=== PATIENT | female | born 1945 | race Caucasian/White ===

== ENCOUNTER 2016-08-25 08:14 | Outpatient (CLI) | payer MEDICARE ==
[2016-08-25 10:25] LABS: ALT (SGPT) 22 U/L (0-55); AST (SGOT) 17 U/L (5-34); Alkaline Phosphatase 109 U/L (40-150); Anion Gap 17 mmol/L (10-20); BUN (Urea Nitrogen) 15 mg/dL (9.8-20.1); Bilirubin, Total 0.5 mg/dL (0.2-1.2); Calc. Creatinine Clearance 0 mL/min (70-130); Calcium 9.7 mg/dL (7.8-10.44); Cardiac Risk 3.7 (Less than 4.5); Cholesterol 147 mg/dL (< 200 Desired); Estimated GFR-MDRD 83; Globulin 2.8 g/dL (2.4-3.5); Glucose 98 mg/dL (80-115); HDL Cholesterol 40 mg/dL (>60 Neg Risk); LDL Cholesterol, Calculated 83 mg/dL; Protein, Total 6.8 g/dL (5.8-8.1); Triglycerides 120 mg/dL (Less than 150)
[2016-08-25 10:31] LABS: Carbon Dioxide 41 mmol/L (23-31); Chloride 88 mmol/L (98-107); Potassium 4.4 mmol/L (3.5-5.1); Sodium 142 mmol/L (136-145)
== END 2016-08-25 08:15 | disposition home or self-care (01) ==
LOC: MADLAB 08:14 → MERGE 08:14 → MADLAB 08:15
PROVIDERS: ATTEND Internal Medicine Cardiovascular Disease
DX: E78.00 Pure hypercholesterolemia, unspecified (principal); E03.9 Hypothyroidism, unspecified
CPT/HCPCS: 36415; 80053; 80061; 84443

== ENCOUNTER 2017-01-29 08:15 | Outpatient (CLI) | payer MEDICARE ==
[2017-01-29 08:56] LABS: #Basophils 0.1 thou/uL (0.0-0.2); #Eosinphils 0.2 thou/uL (0.0-0.7); #Lymphocytes 1.8 thou/uL (1.20-3.40); #Monocytes 0.8 thou/uL (0.11-0.59); #Neutrophils 6.7 thou/uL (1.40-6.50); %Basophils 1.5 % (0.0-1.0); %Eosinophils 1.8 % (0.0-10.0); %Lymphocytes 18.6 % (21.0-51.0); %Monocytes 8.3 % (0.0-10.0); %Neutrophils 69.8 % (42.0-75.0); Hemoglobin 11.9 g/dL (12.0-16.0); Mean Corpuscular HGB CONC 31.3 g/dL (32.0-36.0); Mean Corpuscular Hemoglobin 29.4 pg (27.0-31.0); Mean Platelet Volume 6.9 fL (7.4-10.4); Platelet Count 223 thou/uL (130-400); RBC Distribution Width 13.8 % (11.5-14.5); Red Blood Cell (RBC) Count 4.05 mill/uL (4.20-5.40); White Blood Cell (WBC) Count 9.6 thou/uL (4.8-10.8)
[2017-01-29 09:26] LABS: Digoxin 1.73 ng/mL (0.8-2.0)
[2017-01-29 09:31] LABS: ALT (SGPT) 20 U/L (8-55); AST (SGOT) 15 U/L (5-34); Albumin 3.9 g/dL (3.4-4.8); Alkaline Phosphatase 109 U/L (40-150); Anion Gap 18 mmol/L (10-20); BUN (Urea Nitrogen) 14 mg/dL (9.8-20.1); Bilirubin, Direct 0.3 mg/dL (0.1-0.3); Bilirubin, Total 0.6 mg/dL (0.2-1.2); Calc. Creatinine Clearance 0 mL/min (70-130); Calcium 9.8 mg/dL (7.8-10.44); Cardiac Risk 3.1 (Less than 4.5); Cholesterol 156 mg/dl (< 200 Desired); Estimated GFR-MDRD 78; Glucose 105 mg/dL (80-115); HDL Cholesterol 50 mg/dL (>60 Neg Risk); LDL Cholesterol, Calculated 86 mg/dL; Protein, Total 6.9 g/dL (6.0-8.3); Triglycerides 98 mg/dL (Less than 150)
[2017-01-29 09:39] LABS: Chloride 86 mmol/L (98-107); Potassium 4.5 mmol/L (3.5-5.1); Sodium 142 mmol/L (136-145)
[2017-01-29 11:07] LABS: Carbon Dioxide 44 mmol/L (23-31)
== END 2017-01-29 08:16 | disposition home or self-care (01) ==
LOC: MADLABBHPM 08:15
PROVIDERS: ATTEND Family Medicine
DX: I42.9 Cardiomyopathy, unspecified (principal); I10 Essential (primary) hypertension
CPT/HCPCS: 36415; 80048; 80061; 80076; 80162; 85025

== ENCOUNTER 2017-04-11 09:40 | Emergency (ER) | payer MEDICARE ==
[2017-04-11] MEDS ORDERED: Triple Antibiotic Oint 1 GM Packet ONE (10:20)
[2017-04-11] MEDS ORDERED: Naproxen 500 MG TAB ONE (10:20)
--- NOTE | 2017-04-11 11:05 | RAD ---
LEFT HAND 3 VIEWS: Date: 04/11/17 PROVIDED CLINICAL HISTORY: Left hand pain. FINDINGS: There is a transversely oriented fracture of the distal radial metaphyseal region with associated ap ex volar angulation at the fracture site. There is no definite evidence for fracture involving the l eft hand. Correlation with dedicated left wrist radiographs recommended. IMPRESSION: Displaced distal radial fracture. Recommend dedicated left wrist radiographs. POS: [facility]
--- NOTE | 2017-04-11 11:19 | RAD ---
THREE VIEWS OF THE LEFT WRIST 04/11/17 COMPARISON: None. HISTORY: Left wrist pain after fall. FINDINGS: Three views of the left wrist shows a comminuted intra-articular fracture of the distal radius. No d efinite ulnar styloid fracture is seen. Surrounding soft tissue swelling and deformity are seen. IMPRESSION: Comminuted intra-articular distal radius fracture. POS: [facility]
--- NOTE | 2017-04-11 11:21 | RAD ---
TWO VIEWS OF THE LEFT FOREARM 04/11/17 COMPARISON: None. HISTORY: Fall with left wrist and distal forearm pain. FINDINGS: Two views left forearm shows a comminuted intra-articular fracture of the distal radius. No other fr actures are seen. Soft tissue swelling is seen surrounding the wrist. IMPRESSION: Comminuted intra-articular distal radius fracture. POS: [facility]
[2017-04-11] MEDS ORDERED: HYDROcodone/Acetaminophen 10/325 mg Tablet ONE (11:36)
== END 2017-04-11 11:40 | disposition home or self-care (01) ==
LOC: MADERS 09:40
DX: S52.572A Other intraarticular fracture of lower end of left radius, initial encounter for closed fracture (principal); J44.9 Chronic obstructive pulmonary disease, unspecified; E78.5 Hyperlipidemia, unspecified; I10 Essential (primary) hypertension; F32.9 Major depressive disorder, single episode, unspecified; F17.210 Nicotine dependence, cigarettes, uncomplicated; Z79.899 Other long term (current) drug therapy; W19.XXXA Unspecified fall, initial encounter
CPT/HCPCS: 29125

== ENCOUNTER 2017-07-02 08:27 | Outpatient (CLI) | payer MEDICARE ==
[2017-07-02 09:20] LABS: ALT (SGPT) 21 U/L (8-55); AST (SGOT) 16 U/L (5-34); Albumin 3.6 g/dL (3.4-4.8); Alkaline Phosphatase 182 U/L (40-150); Anion Gap 20 mmol/L (10-20); BUN (Urea Nitrogen) 18 mg/dL (9.8-20.1); Bilirubin, Direct 0.2 mg/dL (0.1-0.3); Bilirubin, Total 0.4 mg/dL (0.2-1.2); Calc. Creatinine Clearance 0 mL/min (70-130); Carbon Dioxide 36 mmol/L (23-31); Cardiac Risk 3.9 (Less than 4.5); Cholesterol 140 mg/dl (< 200 Desired); Estimated GFR-MDRD 74; Glucose 102 mg/dL (83-110); HDL Cholesterol 36 mg/dL (>60 Neg Risk); LDL Cholesterol, Calculated 81 mg/dL; Protein, Total 6.8 g/dL (6.0-8.3); Triglycerides 114 mg/dL (Less than 150)
[2017-07-02 09:22] LABS: Digoxin 1.88 ng/mL (0.8-2.0)
[2017-07-02 09:25] LABS: Sodium 141 mmol/L (136-145)
[2017-07-02 09:26] LABS: Chloride 89 mmol/L (98-107); Potassium 3.9 mmol/L (3.5-5.1)
--- NOTE | 2017-07-02 10:23 | RAD ---
LEFT WRIST FOUR VIEWS: History: Left wrist fracture. Pain. Follow up. Comparison: 04-11-17 FINDINGS: There is now worsening dorsal angulation of the comminuted intraarticular distal radial fracture. The re is loss of inclination and significant impaction. No significant callus formation or periosteal re action are apparent. Osseous structures are demineralized. IMPRESSION: 1. Worsening alignment of the distal left intraarticular radial fracture without significant healing apparent. Please consider orthopedic evaluation. 2. Osteoporosis. Findings were called to Ingrid at the office of Dr. Kramer at [id number] hours. Code CR. POS: [facility]
== END 2017-07-02 08:28 | disposition home or self-care (01) ==
LOC: MADLABBHPM 08:27
PROVIDERS: ATTEND Family Medicine
DX: S52.502A Unspecified fracture of the lower end of left radius, initial encounter for closed fracture (principal)
CPT/HCPCS: 80048; 80061; 80076; 80162; 84443

== ENCOUNTER 2019-03-28 08:13 | Outpatient (CLI) | payer MEDICARE ==
[2019-03-28 09:09] LABS: #Basophils 0.1 thou/uL (0.0-0.2); #Eosinphils 0.2 thou/uL (0.0-0.7); #Monocytes 0.9 thou/uL (0.11-0.59); #Neutrophils 6.1 thou/uL (1.40-6.50); %Basophils 1.1 % (0.0-1.0); %Eosinophils 2.3 % (0.0-10.0); %Lymphocytes 21.1 % (21.0-51.0); %Monocytes 10.1 % (0.0-10.0); %Neutrophils 65.4 % (42.0-75.0); Mean Corpuscular Hemoglobin 27.3 pg (27.0-31.0); Mean Corpuscular Volume 85.2 fL (78.0-98.0); Mean Platelet Volume 5.5 fL (7.4-10.4); Platelet Count 277 thou/uL (130-400); RBC Distribution Width 14.2 % (11.5-14.5); Red Blood Cell (RBC) Count 4.39 mill/uL (4.20-5.40); White Blood Cell (WBC) Count 9.3 thou/uL (4.8-10.8)
[2019-03-28 09:22] LABS: ALT (SGPT) 21 U/L (8-55); AST (SGOT) 18 U/L (5-34); Alkaline Phosphatase 100 U/L (40-110); Anion Gap 15 mmol/L (10-20); BUN (Urea Nitrogen) 32 mg/dL (9.8-20.1); Bilirubin, Total 0.5 mg/dL (0.2-1.2); Calc. Creatinine Clearance 0 mL/min (70-130); Calcium 9.9 mg/dL (7.8-10.44); Cardiac Risk 3.5 (Less than 4.5); Cholesterol 124 mg/dl (< 200 Desired); Estimated GFR-MDRD 48; Globulin 3.4 g/dL (2.4-3.5); Glucose 106 mg/dL (83-110); HDL Cholesterol 35 mg/dL (>60 Neg Risk); LDL Cholesterol, Calculated 59 mg/dL; Protein, Total 7.4 g/dL (6.0-8.3); Triglycerides 152 mg/dL (Less than 150)
[2019-03-28 09:30] LABS: Chloride 86 mmol/L (98-107); Potassium 3.3 mmol/L (3.5-5.1); Sodium 140 mmol/L (136-145)
[2019-03-28 10:02] LABS: Carbon Dioxide 40 mmol/L (23-31)
== END 2019-03-28 08:14 | disposition home or self-care (01) ==
LOC: MADLAB 08:13
PROVIDERS: ATTEND Family Medicine
DX: E03.9 Hypothyroidism, unspecified (principal)
CPT/HCPCS: 36415; 80053; 80061; 84443; 85025

== ENCOUNTER 2021-05-28 19:15 | Emergency (ER) | payer OTHER, MEDICARE ==
[2021-05-28] MEDS ORDERED: Bacitracin 1 PK ONE (20:45)
[2021-05-28] MEDS ORDERED: traMADol HCl 50 MG TAB ONE (21:07)
[2021-05-28 21:36] LABS: INR-International Normal Ratio 0.9; PTT 29.2 sec (22.9-36.1); Prothrombin Time 12.5 sec (12.0-14.7)
[2021-05-28 21:37] LABS: Band 2 % (5-11); Eosinophils 3 % (0-10); Hemoglobin 11.7 g/dL (12.0-16.0); Lymphocytes 13 % (21-51); MDiff Complete? YES; Mean Corpuscular HGB CONC 31.8 g/dL (32.0-36.0); Mean Corpuscular Hemoglobin 29.9 pg (27.0-31.0); Mean Corpuscular Volume 93.9 fL (78.0-98.0); Mean Platelet Volume 6.8 fL (7.4-10.4); Monocytes 6 % (0-10); Neutrophil 76 % (42-75); Platelet Count 266 thou/uL (130-400); RBC Distribution Width 13.2 % (11.5-14.5); Red Blood Cell (RBC) Count 3.91 mill/uL (4.20-5.40); White Blood Cell (WBC) Count 21.7 thou/uL (4.8-10.8)
[2021-05-28 21:47] LABS: ALT (SGPT) 20 U/L (8-55); AST (SGOT) 29 U/L (5-34); Albumin 4.1 g/dL (3.4-4.8); Alkaline Phosphatase 93 U/L (40-110); Anion Gap 18 mmol/L (10-20); BUN (Urea Nitrogen) 62 mg/dL (9.8-20.1); Bilirubin, Total 0.4 mg/dL (0.2-1.2); Calc. Creatinine Clearance 0 mL/min (70-130); Calcium 10.2 mg/dL (7.8-10.44); Globulin 3.3 g/dL (2.4-3.5); Glucose 138 mg/dL (83-110); Protein, Total 7.4 g/dL (5.8-8.1)
[2021-05-28 21:50] LABS: Carbon Dioxide 46 mmol/L (23-31); Chloride 78 mmol/L (98-107); Potassium 4.6 mmol/L (3.5-5.1); Sodium 137 mmol/L (136-145)
[2021-05-28 22:38] LABS: SARS-CoV-2 NAA Rapid Test Not Detected (NotDetected)
[2021-05-28 22:43] LABS: Bilirubin Negative (Negative); Blood, Urine Small (Negative); Clarity Turbid (Clear); Glucose, Urine (Dipstick) Negative (Negative); Ketone, Urine Negative (Negative); Leukocyte Small (Negative); Nitrite Positive (Negative); Protein, Urine (Dipstick) Negative (Neg-Trace); Specific Gravity, Urine 1.015 (1.005-1.030); Urobilinogen 0.2 mg/dL (Less than 2); pH, Urine 5.5 (5.0-9.0)
[2021-05-28 22:46] LABS: Bacteria/HPF 4+ HPF (None Seen); WBC/HPF 21-50 HPF (0-3)
[2021-05-28] MEDS ORDERED: Sodium Chloride 0.9% 100 ML ONE (23:01)
[2021-05-28] MEDS ORDERED: cefTRIAXone\\ROCEPHIN 1 GM VIAL ONE (23:01)
== END 2021-05-28 23:13 | disposition short-term general hospital (02) ==
LOC: MADERS 19:15
DX: S32.402A Unspecified fracture of left acetabulum, initial encounter for closed fracture (principal); S51.012A Laceration without foreign body of left elbow, initial encounter; S00.03XA Contusion of scalp, initial encounter; J44.9 Chronic obstructive pulmonary disease, unspecified; D72.829 Elevated white blood cell count, unspecified; E86.0 Dehydration; N30.00 Acute cystitis without hematuria; W01.10XA Fall on same level from slipping, tripping and stumbling with subsequent striking against unspecified object, initial encounter; Z20.822 Contact with and (suspected) exposure to COVID-19; I10 Essential (primary) hypertension; E78.5 Hyperlipidemia, unspecified; E78.00 Pure hypercholesterolemia, unspecified; E03.9 Hypothyroidism, unspecified; F17.210 Nicotine dependence, cigarettes, uncomplicated; Z79.82 Long term (current) use of aspirin; Z79.899 Other long term (current) drug therapy
CPT/HCPCS: 70450; 71045; 72125; 72170; 73502; 80053; 85025; 85610; 85730; 87086; 93005; 94640; 94760; U0002; 51702; 81003; 81015; 87186; 96374; J0696; J3490; J7620

== ENCOUNTER 2021-06-01 15:49 | Inpatient (IN) | payer MEDICARE ==
[2021-06-01] MEDS ORDERED: Acetaminophen 325 MG TAB PO PRN (22:39)
[2021-06-01] MEDS ORDERED: Mometasone/Formoterol 200/5 60 PUFF INH SCH (22:45)
[2021-06-01] MEDS ORDERED: Atorvastatin Calcium 40 MG TAB PO SCH (22:45)
[2021-06-01] MEDS ORDERED: guaiFENesin ER 600 MG TAB PO SCH (23:00)
[2021-06-01] MEDS ORDERED: busPIRone HCl 5 MG TAB PO SCH (23:00)
[2021-06-02 04:45] LABS: Bilirubin Negative (Negative); Blood, Urine Trace (Negative); Clarity Clear (Clear); Glucose, Urine (Dipstick) Negative (Negative); Ketone, Urine Negative (Negative); Leukocyte Trace (Negative); Nitrite Negative (Negative); Protein, Urine (Dipstick) Negative (Neg-Trace); Urobilinogen 0.2 mg/dL (Less than 2); pH, Urine 5.5 (5.0-9.0)
[2021-06-02 04:47] LABS: Squamous Epithelial 0-3 HPF (0-3)
[2021-06-02 04:48] LABS: Bacteria/HPF None Seen HPF (None Seen); Transitional Epithelial 0-3 HPF (None Seen)
[2021-06-02] MEDS: Levothyroxine Sodium 75 MCG TAB PO SCH (05:24)
[2021-06-02 05:28] LABS: #Basophils 0.1 thou/uL (0.0-0.2); #Eosinphils 0.1 thou/uL (0.0-0.7); #Lymphocytes 1.5 thou/uL (1.20-3.40); #Monocytes 1.4 thou/uL (0.11-0.59); #Neutrophils 7.4 thou/uL (1.40-6.50); %Eosinophils 0.9 % (0.0-10.0); %Lymphocytes 14.5 % (21.0-51.0); %Monocytes 13.2 % (0.0-10.0); %Neutrophils 70.4 % (42.0-75.0); Hemoglobin 9.9 g/dL (12.0-16.0); Mean Corpuscular HGB CONC 31.5 g/dL (32.0-36.0); Mean Corpuscular Hemoglobin 29.4 pg (27.0-31.0); Mean Corpuscular Volume 93.4 fL (78.0-98.0); Mean Platelet Volume 6.7 fL (7.4-10.4); Platelet Count 192 thou/uL (130-400); RBC Distribution Width 13.2 % (11.5-14.5); Red Blood Cell (RBC) Count 3.36 mill/uL (4.20-5.40); White Blood Cell (WBC) Count 10.5 thou/uL (4.8-10.8)
[2021-06-02 05:45] LABS: ALT (SGPT) 29 U/L (8-55); AST (SGOT) 19 U/L (5-34); Albumin 3.3 g/dL (3.4-4.8); Anion Gap 18 mmol/L (10-20); BUN (Urea Nitrogen) 73 mg/dL (9.8-20.1); Bilirubin, Total 0.6 mg/dL (0.2-1.2); Calc. Creatinine Clearance 45 mL/min (70-130); Calcium 10.1 mg/dL (7.8-10.44); Globulin 2.8 g/dL (2.4-3.5); Glucose 85 mg/dL (83-110); Protein, Total 6.1 g/dL (5.8-8.1)
[2021-06-02 05:53] LABS: Alkaline Phosphatase 61 U/L (40-110); Carbon Dioxide 46 mmol/L (23-31); Chloride 81 mmol/L (98-107); Potassium 3.7 mmol/L (3.5-5.1); Sodium 142 mmol/L (136-145)
[2021-06-02] MEDS ORDERED: predniSONE 20 MG TAB PO SCH (08:00)
[2021-06-02] MEDS: Aspirin 81 mg Enteric Coated Tablet PO SCH (08:28)
[2021-06-02] MEDS: Ezetimibe 10 MG TAB PO SCH (08:28)
[2021-06-02] MEDS: guaiFENesin ER 600 MG TAB PO SCH ×2 (08:29→20:23)
[2021-06-02] MEDS: FLUoxetine HCl 20 MG CAP PO SCH (08:29)
[2021-06-02] MEDS: Digoxin 0.125 MG TAB PO SCH (08:29)
[2021-06-02] MEDS: Furosemide 40 MG TAB PO SCH ×2 (08:29→13:07)
[2021-06-02] MEDS: Carvedilol 3.125 MG TAB PO SCH ×2 (08:29→17:27)
[2021-06-02] MEDS: Loratadine 10 MG TAB PO SCH (08:29)
[2021-06-02] MEDS: Potassium Chloride 20 MEQ TAB PO SCH (08:29)
[2021-06-02] MEDS ORDERED: Metolazone 5 MG TAB PO SCH (08:30)
[2021-06-02] MEDS: Mometasone/Formoterol 200/5 60 PUFF INH SCH ×2 (08:30→20:23)
[2021-06-02] MEDS: traMADol HCl 50 MG TAB PO PRN ×2 (13:06→21:13)
[2021-06-02] MEDS: Acetaminophen 325 MG TAB PO PRN ×2 (15:31→20:21)
[2021-06-02] MEDS: busPIRone HCl 5 MG TAB PO SCH (20:22)
[2021-06-02] MEDS: Atorvastatin Calcium 40 MG TAB PO SCH (20:23)
[2021-06-02] MEDS: Melatonin 3 MG TAB PO PRN (20:25)
[2021-06-03] MEDS: Levothyroxine Sodium 75 MCG TAB PO SCH (05:38)
[2021-06-03] MEDS: traMADol HCl 50 MG TAB PO PRN ×3 (05:42→22:19)
[2021-06-03] MEDS: Ezetimibe 10 MG TAB PO SCH (08:47)
[2021-06-03] MEDS: Acetaminophen 325 MG TAB PO PRN ×2 (08:47→20:51)
[2021-06-03] MEDS: Aspirin 81 mg Enteric Coated Tablet PO SCH (08:47)
[2021-06-03] MEDS: Potassium Chloride 20 MEQ TAB PO SCH (08:48)
[2021-06-03] MEDS: Carvedilol 3.125 MG TAB PO SCH ×2 (08:48→17:21)
[2021-06-03] MEDS: Digoxin 0.125 MG TAB PO SCH (08:48)
[2021-06-03] MEDS: FLUoxetine HCl 20 MG CAP PO SCH (08:48)
[2021-06-03] MEDS: Loratadine 10 MG TAB PO SCH (08:48)
[2021-06-03] MEDS: Mometasone/Formoterol 200/5 60 PUFF INH SCH ×2 (08:49→20:11)
[2021-06-03] MEDS: Furosemide 40 MG TAB PO SCH (08:49)
[2021-06-03] MEDS: guaiFENesin ER 600 MG TAB PO SCH ×2 (08:49→20:11)
[2021-06-03] MEDS: Atorvastatin Calcium 40 MG TAB PO SCH (20:10)
[2021-06-03] MEDS: busPIRone HCl 5 MG TAB PO SCH (20:10)
[2021-06-03] MEDS: Melatonin 3 MG TAB PO PRN (20:11)
[2021-06-03] MEDS: Calcium Carbonate 500 MG ChewTAB PO PRN (20:51)
[2021-06-04] MEDS: Levothyroxine Sodium 75 MCG TAB PO SCH (05:22)
[2021-06-04] MEDS: Carvedilol 3.125 MG TAB PO SCH ×2 (09:19→17:09)
[2021-06-04] MEDS: guaiFENesin ER 600 MG TAB PO SCH ×2 (09:20→20:05)
[2021-06-04] MEDS: Loratadine 10 MG TAB PO SCH (09:20)
[2021-06-04] MEDS: Furosemide 40 MG TAB PO SCH (09:20)
[2021-06-04] MEDS: Digoxin 0.125 MG TAB PO SCH (09:20)
[2021-06-04] MEDS: Aspirin 81 mg Enteric Coated Tablet PO SCH (09:20)
[2021-06-04] MEDS: Potassium Chloride 20 MEQ TAB PO SCH (09:20)
[2021-06-04] MEDS: Ezetimibe 10 MG TAB PO SCH (09:21)
[2021-06-04] MEDS: traMADol HCl 50 MG TAB PO PRN ×2 (09:21→18:12)
[2021-06-04] MEDS: FLUoxetine HCl 20 MG CAP PO SCH (09:21)
[2021-06-04] MEDS: Mometasone/Formoterol 200/5 60 PUFF INH SCH ×2 (09:27→20:05)
[2021-06-04 16:43] LABS: SARS-CoV-2 PCR by NAA Not Detected (NotDetected)
[2021-06-04] MEDS: Melatonin 3 MG TAB PO PRN (20:04)
[2021-06-04] MEDS: busPIRone HCl 5 MG TAB PO SCH (20:04)
[2021-06-04] MEDS: Atorvastatin Calcium 40 MG TAB PO SCH (20:04)
[2021-06-05] MEDS: Calcium Carbonate 500 MG ChewTAB PO PRN (05:31)
[2021-06-05] MEDS: traMADol HCl 50 MG TAB PO PRN ×3 (05:31→22:29)
[2021-06-05] MEDS: Levothyroxine Sodium 75 MCG TAB PO SCH (05:32)
[2021-06-05 05:48] LABS: Anion Gap 17 mmol/L (10-20); BUN (Urea Nitrogen) 79 mg/dL (9.8-20.1); Calc. Creatinine Clearance 48 mL/min (70-130); Glucose 128 mg/dL (83-110)
[2021-06-05 05:55] LABS: Chloride 75 mmol/L (98-107); Potassium 3.1 mmol/L (3.5-5.1); Sodium 137 mmol/L (136-145)
[2021-06-05 05:57] LABS: Carbon Dioxide 49 mmol/L (23-31)
[2021-06-05] MEDS: Ezetimibe 10 MG TAB PO SCH (08:27)
[2021-06-05] MEDS: FLUoxetine HCl 20 MG CAP PO SCH (08:27)
[2021-06-05] MEDS: Digoxin 0.125 MG TAB PO SCH (08:27)
[2021-06-05] MEDS: Aspirin 81 mg Enteric Coated Tablet PO SCH (08:27)
[2021-06-05] MEDS: guaiFENesin ER 600 MG TAB PO SCH ×2 (08:27→21:05)
[2021-06-05] MEDS: Loratadine 10 MG TAB PO SCH (08:27)
[2021-06-05] MEDS: Carvedilol 3.125 MG TAB PO SCH ×2 (08:27→17:44)
[2021-06-05] MEDS: Mometasone/Formoterol 200/5 60 PUFF INH SCH ×2 (08:28→21:04)
[2021-06-05] MEDS ORDERED: Potassium Chloride 20 MEQ TAB PO SCH (08:45)
[2021-06-05] MEDS: Furosemide 40 MG TAB PO SCH (09:57)
[2021-06-05] MEDS: Potassium Chloride 20 MEQ TAB PO SCH ×2 (10:08→17:43)
[2021-06-05] MEDS: Melatonin 3 MG TAB PO PRN (21:05)
[2021-06-05] MEDS: busPIRone HCl 5 MG TAB PO SCH (21:05)
[2021-06-05] MEDS: Atorvastatin Calcium 40 MG TAB PO SCH (21:05)
[2021-06-06] MEDS: Levothyroxine Sodium 75 MCG TAB PO SCH (05:48)
[2021-06-06] MEDS: FLUoxetine HCl 20 MG CAP PO SCH (08:15)
[2021-06-06] MEDS: Furosemide 40 MG TAB PO SCH (08:15)
[2021-06-06] MEDS: guaiFENesin ER 600 MG TAB PO SCH ×2 (08:15→20:46)
[2021-06-06] MEDS: Potassium Chloride 20 MEQ TAB PO SCH ×2 (08:15→16:21)
[2021-06-06] MEDS: Aspirin 81 mg Enteric Coated Tablet PO SCH (08:15)
[2021-06-06] MEDS: Carvedilol 3.125 MG TAB PO SCH ×2 (08:15→16:21)
[2021-06-06] MEDS: Loratadine 10 MG TAB PO SCH (08:15)
[2021-06-06] MEDS: Mometasone/Formoterol 200/5 60 PUFF INH SCH ×2 (08:16→20:44)
[2021-06-06] MEDS: Ezetimibe 10 MG TAB PO SCH (08:16)
[2021-06-06] MEDS: Digoxin 0.125 MG TAB PO SCH (08:18)
[2021-06-06] MEDS: traMADol HCl 50 MG TAB PO PRN (16:21)
[2021-06-06] MEDS: Atorvastatin Calcium 40 MG TAB PO SCH (20:46)
[2021-06-06] MEDS: Melatonin 3 MG TAB PO PRN (20:46)
[2021-06-06] MEDS: busPIRone HCl 5 MG TAB PO SCH (20:47)
[2021-06-06] MEDS: Acetaminophen 325 MG TAB PO PRN (21:05)
[2021-06-07] MEDS: traMADol HCl 50 MG TAB PO PRN ×2 (01:55→16:15)
[2021-06-07] MEDS: Levothyroxine Sodium 75 MCG TAB PO SCH (05:37)
[2021-06-07 05:47] LABS: #Basophils 0.1 thou/uL (0.0-0.2); #Eosinphils 0.5 thou/uL (0.0-0.7); #Lymphocytes 2.1 thou/uL (1.20-3.40); #Monocytes 1.2 thou/uL (0.11-0.59); #Neutrophils 9.4 thou/uL (1.40-6.50); %Basophils 0.9 % (0.0-1.0); %Eosinophils 3.7 % (0.0-10.0); %Lymphocytes 15.8 % (21.0-51.0); %Monocytes 8.9 % (0.0-10.0); %Neutrophils 70.6 % (42.0-75.0); Hemoglobin 6.5 g/dL (12.0-16.0); Mean Corpuscular HGB CONC 34.6 g/dL (32.0-36.0); Mean Corpuscular Hemoglobin 31.9 pg (27.0-31.0); Mean Corpuscular Volume 92.1 fL (78.0-98.0); Mean Platelet Volume 5.7 fL (7.4-10.4); Platelet Count 356 thou/uL (130-400); RBC Distribution Width 16.8 % (11.5-14.5); Red Blood Cell (RBC) Count 2.04 mill/uL (4.20-5.40); White Blood Cell (WBC) Count 13.4 thou/uL (4.8-10.8)
[2021-06-07 06:07] LABS: Anion Gap 11 mmol/L (10-20); BUN (Urea Nitrogen) 69 mg/dL (9.8-20.1); Calc. Creatinine Clearance 50 mL/min (70-130); Calcium 9.4 mg/dL (7.8-10.44); Glucose 107 mg/dL (83-110)
[2021-06-07 06:15] LABS: Chloride 81 mmol/L (98-107); Potassium 3.5 mmol/L (3.5-5.1); Sodium 134 mmol/L (136-145)
[2021-06-07 07:38] LABS: Carbon Dioxide 46 mmol/L (23-31)
[2021-06-07] MEDS: Ezetimibe 10 MG TAB PO SCH (08:30)
[2021-06-07] MEDS: Potassium Chloride 20 MEQ TAB PO SCH ×2 (08:30→16:14)
[2021-06-07] MEDS: Carvedilol 3.125 MG TAB PO SCH ×2 (08:30→16:21)
[2021-06-07] MEDS: FLUoxetine HCl 20 MG CAP PO SCH (08:30)
[2021-06-07] MEDS: Acetaminophen 325 MG TAB PO PRN ×2 (08:30→22:38)
[2021-06-07] MEDS: guaiFENesin ER 600 MG TAB PO SCH ×2 (08:30→20:50)
[2021-06-07] MEDS: Digoxin 0.125 MG TAB PO SCH (08:30)
[2021-06-07] MEDS: Aspirin 81 mg Enteric Coated Tablet PO SCH (08:30)
[2021-06-07] MEDS: Loratadine 10 MG TAB PO SCH (08:31)
[2021-06-07] MEDS: Mometasone/Formoterol 200/5 60 PUFF INH SCH ×2 (08:32→20:51)
[2021-06-07] MEDS: Furosemide 40 MG TAB PO SCH (08:32)
[2021-06-07] MEDS: Polyethylene Glycol 3350 17 GM Packet PO PRN (17:10)
[2021-06-07] MEDS: Atorvastatin Calcium 40 MG TAB PO SCH (20:50)
[2021-06-07] MEDS: busPIRone HCl 5 MG TAB PO SCH (20:50)
[2021-06-07] MEDS: Melatonin 3 MG TAB PO PRN (20:50)
[2021-06-08 05:17] LABS: #Basophils 0.1 thou/uL (0.0-0.2); #Eosinphils 0.4 thou/uL (0.0-0.7); #Monocytes 1.1 thou/uL (0.11-0.59); #Neutrophils 9.1 thou/uL (1.40-6.50); %Basophils 0.9 % (0.0-1.0); %Eosinophils 3.3 % (0.0-10.0); %Lymphocytes 15.4 % (21.0-51.0); %Monocytes 8.4 % (0.0-10.0); %Neutrophils 71.9 % (42.0-75.0); Hemoglobin 8.1 g/dL (12.0-16.0); Mean Corpuscular HGB CONC 33.4 g/dL (32.0-36.0); Mean Corpuscular Hemoglobin 30.8 pg (27.0-31.0); Mean Corpuscular Volume 92.2 fL (78.0-98.0); Mean Platelet Volume 5.7 fL (7.4-10.4); Platelet Count 355 thou/uL (130-400); RBC Distribution Width 17.1 % (11.5-14.5); Red Blood Cell (RBC) Count 2.63 mill/uL (4.20-5.40); White Blood Cell (WBC) Count 12.7 thou/uL (4.8-10.8)
[2021-06-08] MEDS: Levothyroxine Sodium 75 MCG TAB PO SCH (05:19)
[2021-06-08 05:39] LABS: Anion Gap 10 mmol/L (10-20); BUN (Urea Nitrogen) 56 mg/dL (9.8-20.1); Calc. Creatinine Clearance 48 mL/min (70-130); Calcium 9.4 mg/dL (7.8-10.44); Glucose 105 mg/dL (83-110)
[2021-06-08 05:42] LABS: Carbon Dioxide 43 mmol/L (23-31); Chloride 88 mmol/L (98-107); Sodium 137 mmol/L (136-145)
[2021-06-08] MEDS: Aspirin 81 mg Enteric Coated Tablet PO SCH (08:47)
[2021-06-08] MEDS: Potassium Chloride 20 MEQ TAB PO SCH ×2 (08:47→18:01)
[2021-06-08] MEDS: Carvedilol 3.125 MG TAB PO SCH ×2 (08:47→18:01)
[2021-06-08] MEDS: FLUoxetine HCl 20 MG CAP PO SCH (08:48)
[2021-06-08] MEDS: guaiFENesin ER 600 MG TAB PO SCH ×2 (08:48→20:14)
[2021-06-08] MEDS: Ezetimibe 10 MG TAB PO SCH (08:48)
[2021-06-08] MEDS: Loratadine 10 MG TAB PO SCH (08:48)
[2021-06-08] MEDS: Digoxin 0.125 MG TAB PO SCH (08:48)
[2021-06-08] MEDS: Furosemide 40 MG TAB PO SCH (08:48)
[2021-06-08] MEDS: Mometasone/Formoterol 200/5 60 PUFF INH SCH ×2 (08:49→20:11)
[2021-06-08] MEDS: traMADol HCl 50 MG TAB PO PRN ×2 (09:35→20:12)
[2021-06-08] MEDS: Polyethylene Glycol 3350 17 GM Packet PO PRN (18:06)
[2021-06-08] MEDS: Atorvastatin Calcium 40 MG TAB PO SCH (20:11)
[2021-06-08] MEDS: busPIRone HCl 5 MG TAB PO SCH (20:12)
[2021-06-09] MEDS: Levothyroxine Sodium 75 MCG TAB PO SCH (05:35)
[2021-06-09] MEDS: traMADol HCl 50 MG TAB PO PRN (05:42)
[2021-06-09] MEDS: Aspirin 81 mg Enteric Coated Tablet PO SCH (07:51)
[2021-06-09] MEDS: FLUoxetine HCl 20 MG CAP PO SCH (07:51)
[2021-06-09] MEDS: Ezetimibe 10 MG TAB PO SCH (07:52)
[2021-06-09] MEDS: Carvedilol 3.125 MG TAB PO SCH ×2 (07:52→16:49)
[2021-06-09] MEDS: guaiFENesin ER 600 MG TAB PO SCH ×2 (07:52→20:45)
[2021-06-09] MEDS: Furosemide 40 MG TAB PO SCH (07:52)
[2021-06-09] MEDS: Mometasone/Formoterol 200/5 60 PUFF INH SCH ×2 (07:52→20:47)
[2021-06-09] MEDS: Loratadine 10 MG TAB PO SCH (07:52)
[2021-06-09] MEDS: Potassium Chloride 20 MEQ TAB PO SCH ×2 (07:52→16:48)
[2021-06-09] MEDS: Digoxin 0.125 MG TAB PO SCH (07:53)
[2021-06-09] MEDS ORDERED: Bisacodyl 10 MG SUPP PR PRN (12:13)
[2021-06-09] MEDS ORDERED: traMADol HCl 50 MG TAB PO SCH (12:15)
[2021-06-09] MEDS ORDERED: Polyethylene Glycol 3350 17 GM Packet PO SCH (12:30)
[2021-06-09] MEDS: Atorvastatin Calcium 40 MG TAB PO SCH (20:45)
[2021-06-09] MEDS: busPIRone HCl 5 MG TAB PO SCH (20:45)
[2021-06-10] MEDS: Levothyroxine Sodium 75 MCG TAB PO SCH (05:13)
[2021-06-10] MEDS: Polyethylene Glycol 3350 17 GM Packet PO SCH (08:06)
[2021-06-10] MEDS: Mometasone/Formoterol 200/5 60 PUFF INH SCH ×2 (08:06→20:28)
[2021-06-10] MEDS: Ezetimibe 10 MG TAB PO SCH (08:07)
[2021-06-10] MEDS: Carvedilol 3.125 MG TAB PO SCH ×3 (08:07→17:11)
[2021-06-10] MEDS: Potassium Chloride 20 MEQ TAB PO SCH ×2 (08:07→17:11)
[2021-06-10] MEDS: Loratadine 10 MG TAB PO SCH (08:07)
[2021-06-10] MEDS: Aspirin 81 mg Enteric Coated Tablet PO SCH (08:07)
[2021-06-10] MEDS: FLUoxetine HCl 20 MG CAP PO SCH (08:07)
[2021-06-10] MEDS: Digoxin 0.125 MG TAB PO SCH (08:07)
[2021-06-10] MEDS: Furosemide 40 MG TAB PO SCH (08:07)
[2021-06-10] MEDS: guaiFENesin ER 600 MG TAB PO SCH ×2 (08:07→20:28)
[2021-06-10] MEDS: Atorvastatin Calcium 40 MG TAB PO SCH (20:28)
[2021-06-10] MEDS: busPIRone HCl 5 MG TAB PO SCH (20:29)
[2021-06-10] MEDS: Melatonin 3 MG TAB PO PRN (22:54)
[2021-06-11] MEDS: traMADol HCl 50 MG TAB PO PRN ×2 (03:24→16:33)
[2021-06-11] MEDS: Levothyroxine Sodium 75 MCG TAB PO SCH (05:00)
[2021-06-11] MEDS: Potassium Chloride 20 MEQ TAB PO SCH ×2 (08:08→16:37)
[2021-06-11] MEDS: FLUoxetine HCl 20 MG CAP PO SCH (08:08)
[2021-06-11] MEDS: Aspirin 81 mg Enteric Coated Tablet PO SCH (08:08)
[2021-06-11] MEDS: guaiFENesin ER 600 MG TAB PO SCH ×2 (08:08→20:56)
[2021-06-11] MEDS: Digoxin 0.125 MG TAB PO SCH (08:08)
[2021-06-11] MEDS: Mometasone/Formoterol 200/5 60 PUFF INH SCH ×2 (08:08→20:57)
[2021-06-11] MEDS: Ezetimibe 10 MG TAB PO SCH (08:09)
[2021-06-11] MEDS: Furosemide 40 MG TAB PO SCH (08:09)
[2021-06-11] MEDS: Loratadine 10 MG TAB PO SCH (08:09)
[2021-06-11] MEDS: Polyethylene Glycol 3350 17 GM Packet PO SCH ×2 (08:10→20:56)
[2021-06-11] MEDS: Carvedilol 3.125 MG TAB PO SCH ×2 (08:10→16:56)
[2021-06-11 15:47] LABS: SARS-CoV-2 PCR by NAA Not Detected (NotDetected)
[2021-06-11] MEDS ORDERED: Senokot S 8.6-50 MG TAB PO PRN (19:44)
[2021-06-11] MEDS: busPIRone HCl 5 MG TAB PO SCH (20:56)
[2021-06-11] MEDS: Atorvastatin Calcium 40 MG TAB PO SCH (20:56)
[2021-06-11] MEDS: Melatonin 3 MG TAB PO PRN (20:56)
[2021-06-12] MEDS: traMADol HCl 50 MG TAB PO PRN ×3 (00:42→18:21)
[2021-06-12] MEDS: Levothyroxine Sodium 75 MCG TAB PO SCH (05:02)
[2021-06-12] MEDS: Polyethylene Glycol 3350 17 GM Packet PO SCH ×2 (09:38→20:09)
[2021-06-12] MEDS: Carvedilol 3.125 MG TAB PO SCH ×2 (09:38→18:15)
[2021-06-12] MEDS: Mometasone/Formoterol 200/5 60 PUFF INH SCH ×2 (09:38→20:10)
[2021-06-12] MEDS: Potassium Chloride 20 MEQ TAB PO SCH ×2 (09:38→18:15)
[2021-06-12] MEDS: Ezetimibe 10 MG TAB PO SCH (09:39)
[2021-06-12 09:40] VITALS: BMI 23.8
[2021-06-12] MEDS: Aspirin 81 mg Enteric Coated Tablet PO SCH (09:40)
[2021-06-12] MEDS: Loratadine 10 MG TAB PO SCH (09:40)
[2021-06-12] MEDS: Digoxin 0.125 MG TAB PO SCH (09:40)
[2021-06-12] MEDS: guaiFENesin ER 600 MG TAB PO SCH ×2 (09:40→20:08)
[2021-06-12] MEDS: FLUoxetine HCl 20 MG CAP PO SCH (09:40)
[2021-06-12] MEDS: Furosemide 40 MG TAB PO SCH (09:40)
[2021-06-12] MEDS ORDERED: Senokot S 8.6-50 MG TAB PO PRN (16:45)
[2021-06-12] MEDS ORDERED: Bisacodyl 10 MG SUPP PR PRN (16:45)
[2021-06-12] MEDS: Melatonin 3 MG TAB PO PRN (20:06)
[2021-06-12] MEDS: busPIRone HCl 5 MG TAB PO SCH (20:06)
[2021-06-12] MEDS: Atorvastatin Calcium 40 MG TAB PO SCH (20:08)
[2021-06-13 05:38] LABS: #Basophils 0.2 thou/uL (0.0-0.2); #Eosinphils 0.3 thou/uL (0.0-0.7); #Lymphocytes 1.2 thou/uL (1.20-3.40); #Monocytes 0.9 thou/uL (0.11-0.59); #Neutrophils 5.5 thou/uL (1.40-6.50); %Basophils 1.9 % (0.0-1.0); %Eosinophils 4.2 % (0.0-10.0); %Lymphocytes 14.9 % (21.0-51.0); %Monocytes 11.5 % (0.0-10.0); %Neutrophils 67.5 % (42.0-75.0); Hemoglobin 8.6 g/dL (12.0-16.0); Mean Corpuscular HGB CONC 32.4 g/dL (32.0-36.0); Mean Corpuscular Hemoglobin 30.4 pg (27.0-31.0); Mean Corpuscular Volume 93.7 fL (78.0-98.0); Mean Platelet Volume 5.8 fL (7.4-10.4); Platelet Count 344 thou/uL (130-400); RBC Distribution Width 16.1 % (11.5-14.5); Red Blood Cell (RBC) Count 2.84 mill/uL (4.20-5.40); White Blood Cell (WBC) Count 8.1 thou/uL (4.8-10.8)
[2021-06-13 05:54] LABS: Anion Gap 13 mmol/L (10-20); BUN (Urea Nitrogen) 26 mg/dL (9.8-20.1); Calc. Creatinine Clearance 59 mL/min (70-130); Calcium 9.4 mg/dL (7.8-10.44); Carbon Dioxide 36 mmol/L (23-31); Chloride 92 mmol/L (98-107); Glucose 92 mg/dL (83-110); Potassium 3.9 mmol/L (3.5-5.1); Sodium 137 mmol/L (136-145)
[2021-06-13] MEDS: Levothyroxine Sodium 75 MCG TAB PO SCH (06:22)
[2021-06-13] MEDS: Ezetimibe 10 MG TAB PO SCH (08:02)
[2021-06-13] MEDS: guaiFENesin ER 600 MG TAB PO SCH ×2 (08:02→20:57)
[2021-06-13] MEDS: Mometasone/Formoterol 200/5 60 PUFF INH SCH ×2 (08:02→20:58)
[2021-06-13] MEDS: Loratadine 10 MG TAB PO SCH (08:02)
[2021-06-13] MEDS: Carvedilol 3.125 MG TAB PO SCH ×2 (08:02→16:00)
[2021-06-13] MEDS: Furosemide 40 MG TAB PO SCH (08:02)
[2021-06-13] MEDS: Potassium Chloride 20 MEQ TAB PO SCH ×2 (08:02→16:00)
[2021-06-13] MEDS: FLUoxetine HCl 20 MG CAP PO SCH (08:02)
[2021-06-13] MEDS: Aspirin 81 mg Enteric Coated Tablet PO SCH (08:03)
[2021-06-13] MEDS: Digoxin 0.125 MG TAB PO SCH (08:03)
[2021-06-13] MEDS: Polyethylene Glycol 3350 17 GM Packet PO SCH ×2 (08:06→20:56)
[2021-06-13] MEDS: traMADol HCl 50 MG TAB PO PRN (18:23)
[2021-06-13] MEDS: busPIRone HCl 5 MG TAB PO SCH (20:56)
[2021-06-13] MEDS: Atorvastatin Calcium 40 MG TAB PO SCH (20:57)
[2021-06-13] MEDS: Melatonin 3 MG TAB PO PRN (21:10)
[2021-06-14] MEDS: traMADol HCl 50 MG TAB PO PRN ×2 (04:36→17:53)
[2021-06-14] MEDS: Levothyroxine Sodium 75 MCG TAB PO SCH (04:36)
[2021-06-14] MEDS: Mometasone/Formoterol 200/5 60 PUFF INH SCH ×2 (08:20→20:18)
[2021-06-14] MEDS: guaiFENesin ER 600 MG TAB PO SCH ×2 (08:21→20:12)
[2021-06-14] MEDS: Furosemide 40 MG TAB PO SCH (08:21)
[2021-06-14] MEDS: Carvedilol 3.125 MG TAB PO SCH ×2 (08:21→16:59)
[2021-06-14] MEDS: Ezetimibe 10 MG TAB PO SCH (08:21)
[2021-06-14] MEDS: Aspirin 81 mg Enteric Coated Tablet PO SCH (08:21)
[2021-06-14] MEDS: FLUoxetine HCl 20 MG CAP PO SCH (08:22)
[2021-06-14] MEDS: Polyethylene Glycol 3350 17 GM Packet PO SCH ×2 (08:22→20:16)
[2021-06-14] MEDS: Loratadine 10 MG TAB PO SCH (08:22)
[2021-06-14] MEDS: Potassium Chloride 20 MEQ TAB PO SCH ×2 (08:25→16:58)
[2021-06-14] MEDS: Digoxin 0.125 MG TAB PO SCH (08:25)
[2021-06-14] MEDS: Calcium Carbonate 500 MG ChewTAB PO PRN (17:53)
[2021-06-14] MEDS: Melatonin 3 MG TAB PO PRN (20:12)
[2021-06-14] MEDS: Atorvastatin Calcium 40 MG TAB PO SCH (20:12)
[2021-06-14] MEDS: busPIRone HCl 5 MG TAB PO SCH (20:12)
[2021-06-15] MEDS: traMADol HCl 50 MG TAB PO PRN (01:25)
[2021-06-15] MEDS: Calcium Carbonate 500 MG ChewTAB PO PRN (01:25)
[2021-06-15] MEDS: Levothyroxine Sodium 75 MCG TAB PO SCH (05:28)
[2021-06-15] MEDS: Potassium Chloride 20 MEQ TAB PO SCH ×2 (07:35→16:40)
[2021-06-15] MEDS: Carvedilol 3.125 MG TAB PO SCH ×2 (07:38→16:40)
[2021-06-15] MEDS: Aspirin 81 mg Enteric Coated Tablet PO SCH (09:13)
[2021-06-15] MEDS: Digoxin 0.125 MG TAB PO SCH (09:13)
[2021-06-15] MEDS: Furosemide 40 MG TAB PO SCH (09:13)
[2021-06-15] MEDS: guaiFENesin ER 600 MG TAB PO SCH ×2 (09:13→20:58)
[2021-06-15] MEDS: FLUoxetine HCl 20 MG CAP PO SCH (09:13)
[2021-06-15] MEDS: Ezetimibe 10 MG TAB PO SCH (09:14)
[2021-06-15] MEDS: Loratadine 10 MG TAB PO SCH (09:14)
[2021-06-15] MEDS: Mometasone/Formoterol 200/5 60 PUFF INH SCH ×2 (09:14→20:59)
[2021-06-15] MEDS: Polyethylene Glycol 3350 17 GM Packet PO SCH ×3 (09:14→21:01)
[2021-06-15] MEDS: busPIRone HCl 5 MG TAB PO SCH (20:58)
[2021-06-15] MEDS: Atorvastatin Calcium 40 MG TAB PO SCH (20:59)
[2021-06-15] MEDS: Melatonin 3 MG TAB PO PRN (20:59)
[2021-06-15] MEDS ORDERED: Artificial Tear Sol 15 ML BOT EA EYE PRN (21:11)
[2021-06-16] MEDS: Levothyroxine Sodium 75 MCG TAB PO SCH (05:37)
[2021-06-16] MEDS: Polyethylene Glycol 3350 17 GM Packet PO SCH (08:57)
[2021-06-16] MEDS: guaiFENesin ER 600 MG TAB PO SCH (08:58)
[2021-06-16] MEDS: Carvedilol 3.125 MG TAB PO SCH (08:58)
[2021-06-16] MEDS: Aspirin 81 mg Enteric Coated Tablet PO SCH (08:58)
[2021-06-16] MEDS: FLUoxetine HCl 20 MG CAP PO SCH (08:58)
[2021-06-16] MEDS: Potassium Chloride 20 MEQ TAB PO SCH (08:58)
[2021-06-16] MEDS: Furosemide 40 MG TAB PO SCH (08:58)
[2021-06-16] MEDS: Loratadine 10 MG TAB PO SCH (08:58)
[2021-06-16] MEDS: Digoxin 0.125 MG TAB PO SCH (08:59)
[2021-06-16] MEDS: Ezetimibe 10 MG TAB PO SCH (08:59)
[2021-06-16] MEDS: Mometasone/Formoterol 200/5 60 PUFF INH SCH (09:00)
[2021-06-16 09:02] VITALS: BP 97/58; TEMP 97.5
== END 2021-06-16 15:40 | disposition home or self-care (01) | DRG 560 ==
LOC: MADMS 19:57
PROVIDERS: ADMIT Family Medicine; ATTEND Family Medicine
PROC: 30233N1 Transfusion of Nonautologous Red Blood Cells into Peripheral Vein, Percutaneous Approach (ICD-10-PCS; principal; 2021-06-07)
DX: S32.402D Unspecified fracture of left acetabulum, subsequent encounter for fracture with routine healing (principal); J44.1 Chronic obstructive pulmonary disease with (acute) exacerbation; J96.11 Chronic respiratory failure with hypoxia; I42.9 Cardiomyopathy, unspecified; D62 Acute posthemorrhagic anemia; I13.0 Hypertensive heart and chronic kidney disease with heart failure and stage 1 through stage 4 chronic kidney disease, or unspecified chronic kidney disease; I50.32 Chronic diastolic (congestive) heart failure; J96.12 Chronic respiratory failure with hypercapnia; Z20.822 Contact with and (suspected) exposure to COVID-19; M51.36 Other intervertebral disc degeneration, lumbar region; M47.816 Spondylosis without myelopathy or radiculopathy, lumbar region; E78.5 Hyperlipidemia, unspecified; F32.A Depression, unspecified; E03.9 Hypothyroidism, unspecified; N18.9 Chronic kidney disease, unspecified; G89.29 Other chronic pain; M54.50 Low back pain, unspecified; Z66 Do not resuscitate; K21.9 Gastro-esophageal reflux disease without esophagitis; F41.9 Anxiety disorder, unspecified; E66.9 Obesity, unspecified; W18.30XD Fall on same level, unspecified, subsequent encounter; Z95.810 Presence of automatic (implantable) cardiac defibrillator; Z87.01 Personal history of pneumonia (recurrent); Z68.23 Body mass index [BMI] 23.0-23.9, adult; Z98.51 Tubal ligation status; Z90.89 Acquired absence of other organs; Z90.49 Acquired absence of other specified parts of digestive tract; Z79.82 Long term (current) use of aspirin; Z79.890 Hormone replacement therapy; Z79.899 Other long term (current) drug therapy; Z79.52 Long term (current) use of systemic steroids; Z88.6 Allergy status to analgesic agent; Z88.5 Allergy status to narcotic agent; Z88.8 Allergy status to other drugs, medicaments and biological substances; Z88.0 Allergy status to penicillin; Z88.2 Allergy status to sulfonamides
CPT/HCPCS: 36430; 80048; 80053; 81001; 85025; 86850; 86900; 86901; 94640; 94664; J7512; J7620; P9016; U0003; U0005

== ENCOUNTER 2021-07-17 20:25 | Inpatient (IN) | payer MEDICARE ==
[2021-07-17] MEDS ORDERED: Senokot S 8.6-50 MG TAB PO PRN (23:35)
[2021-07-17] MEDS ORDERED: Polyethylene Glycol 3350 17 GM Packet PO PRN (23:35)
[2021-07-18] MEDS: Levothyroxine Sodium 75 MCG TAB PO SCH (06:02)
[2021-07-18] MEDS: Mometasone/Formoterol 200/5 60 PUFF INH SCH ×2 (06:03→17:53)
[2021-07-18] MEDS: Carvedilol 3.125 MG TAB PO SCH ×2 (09:37→17:06)
[2021-07-18] MEDS: guaiFENesin ER 600 MG TAB PO SCH (09:37)
[2021-07-18] MEDS: FLUoxetine HCl 20 MG CAP PO SCH (09:37)
[2021-07-18] MEDS: Furosemide 20 MG TAB PO SCH ×2 (09:37→21:11)
[2021-07-18] MEDS: Aspirin 81 mg Enteric Coated Tablet PO SCH (09:37)
[2021-07-18] MEDS: Loratadine 10 MG TAB PO SCH (09:37)
[2021-07-18] MEDS: Potassium Chloride 20 MEQ TAB PO SCH ×2 (09:37→21:11)
[2021-07-18] MEDS: Digoxin 0.125 MG TAB PO SCH (09:37)
[2021-07-18] MEDS: Stress 600 With Zinc 1 TAB PO SCH (09:37)
[2021-07-18] MEDS: Multivitamin W/ Minerals 1 TAB PO SCH (09:38)
[2021-07-18] MEDS: Ezetimibe 10 MG TAB PO SCH (09:38)
[2021-07-18] MEDS: Cholecalciferol 1,000 UNITS (25 MCG) TAB PO SCH (09:42)
[2021-07-18 09:45] LABS: ALT (SGPT) 101 U/L (8-55); AST (SGOT) 24 U/L (5-34); Albumin 3.3 g/dL (3.4-4.8); Alkaline Phosphatase 88 U/L (40-110); Anion Gap 15 mmol/L (10-20); BUN (Urea Nitrogen) 22 mg/dL (9.8-20.1); Bilirubin, Total 0.5 mg/dL (0.2-1.2); Calc. Creatinine Clearance 85 mL/min (70-130); Calcium 9.5 mg/dL (7.8-10.44); Carbon Dioxide 37 mmol/L (23-31); Globulin 2.4 g/dL (2.4-3.5); Glucose 82 mg/dL (83-110); Protein, Total 5.7 g/dL (5.8-8.1)
[2021-07-18 09:52] LABS: Chloride 94 mmol/L (98-107); Potassium 4.2 mmol/L (3.5-5.1); Sodium 141 mmol/L (136-145)
[2021-07-18 16:53] LABS: SARS-CoV-2 PCR by NAA Not Detected (NotDetected)
[2021-07-18] MEDS: Calcium Carbonate 500 MG ChewTAB PO PRN (17:03)
[2021-07-18] MEDS: busPIRone HCl 5 MG TAB PO SCH (21:10)
[2021-07-18] MEDS: Atorvastatin Calcium 40 MG TAB PO SCH (21:11)
[2021-07-18] MEDS: traMADol HCl 50 MG TAB PO PRN (21:14)
[2021-07-19] MEDS: Acetaminophen 325 MG TAB PO PRN ×2 (04:07→20:08)
[2021-07-19] MEDS: Levothyroxine Sodium 75 MCG TAB PO SCH (04:07)
[2021-07-19 05:05] LABS: #Basophils 0.1 thou/uL (0.0-0.2); #Eosinphils 0.2 thou/uL (0.0-0.7); #Lymphocytes 2.1 thou/uL (1.20-3.40); #Monocytes 1.1 thou/uL (0.11-0.59); #Neutrophils 8.5 thou/uL (1.40-6.50); %Basophils 0.6 % (0.0-1.0); %Eosinophils 1.7 % (0.0-10.0); %Lymphocytes 17.4 % (21.0-51.0); %Monocytes 9.1 % (0.0-10.0); %Neutrophils 71.1 % (42.0-75.0); Hemoglobin 9.7 g/dL (12.0-16.0); Mean Corpuscular HGB CONC 31.4 g/dL (32.0-36.0); Mean Corpuscular Hemoglobin 28.6 pg (27.0-31.0); Mean Corpuscular Volume 91.1 fL (78.0-98.0); Mean Platelet Volume 4.9 fL (7.4-10.4); Platelet Count 213 thou/uL (130-400); RBC Distribution Width 18.4 % (11.5-14.5)
[2021-07-19] MEDS: Mometasone/Formoterol 200/5 60 PUFF INH SCH ×2 (07:30→19:49)
[2021-07-19] MEDS: Aspirin 81 mg Enteric Coated Tablet PO SCH (08:03)
[2021-07-19] MEDS: Loratadine 10 MG TAB PO SCH (08:03)
[2021-07-19] MEDS: guaiFENesin ER 600 MG TAB PO SCH (08:03)
[2021-07-19] MEDS: predniSONE 20 MG TAB PO SCH (08:03)
[2021-07-19] MEDS: Carvedilol 3.125 MG TAB PO SCH ×2 (08:03→17:04)
[2021-07-19] MEDS: FLUoxetine HCl 20 MG CAP PO SCH (08:04)
[2021-07-19] MEDS: Stress 600 With Zinc 1 TAB PO SCH (08:04)
[2021-07-19] MEDS: Potassium Chloride 20 MEQ TAB PO SCH ×2 (08:04→20:06)
[2021-07-19] MEDS: Ezetimibe 10 MG TAB PO SCH (08:04)
[2021-07-19] MEDS: Multivitamin W/ Minerals 1 TAB PO SCH (08:04)
[2021-07-19] MEDS: Cholecalciferol 1,000 UNITS (25 MCG) TAB PO SCH (08:04)
[2021-07-19] MEDS: Furosemide 20 MG TAB PO SCH ×2 (08:04→20:06)
[2021-07-19] MEDS: Digoxin 0.125 MG TAB PO SCH (08:04)
[2021-07-19] MEDS: busPIRone HCl 5 MG TAB PO SCH (20:06)
[2021-07-19] MEDS: Atorvastatin Calcium 40 MG TAB PO SCH (20:06)
[2021-07-20] MEDS: Levothyroxine Sodium 75 MCG TAB PO SCH (05:12)
[2021-07-20] MEDS: Mometasone/Formoterol 200/5 60 PUFF INH SCH ×3 (07:21→20:32)
[2021-07-20] MEDS: Ezetimibe 10 MG TAB PO SCH (08:19)
[2021-07-20] MEDS: Cholecalciferol 1,000 UNITS (25 MCG) TAB PO SCH (08:19)
[2021-07-20] MEDS: Carvedilol 3.125 MG TAB PO SCH ×2 (08:19→16:36)
[2021-07-20] MEDS: guaiFENesin ER 600 MG TAB PO SCH (08:19)
[2021-07-20] MEDS: Stress 600 With Zinc 1 TAB PO SCH (08:19)
[2021-07-20] MEDS: FLUoxetine HCl 20 MG CAP PO SCH (08:19)
[2021-07-20] MEDS: Potassium Chloride 20 MEQ TAB PO SCH ×2 (08:20→20:05)
[2021-07-20] MEDS: Furosemide 20 MG TAB PO SCH ×2 (08:20→20:05)
[2021-07-20] MEDS: Multivitamin W/ Minerals 1 TAB PO SCH (08:20)
[2021-07-20] MEDS: Aspirin 81 mg Enteric Coated Tablet PO SCH (08:20)
[2021-07-20] MEDS: Loratadine 10 MG TAB PO SCH (08:20)
[2021-07-20] MEDS: predniSONE 20 MG TAB PO SCH (08:20)
[2021-07-20] MEDS: Digoxin 0.125 MG TAB PO SCH (08:21)
[2021-07-20] MEDS ORDERED: Guaifenesin DM 100-10/5 ML UDCUP PO PRN (14:40)
[2021-07-20] MEDS: traMADol HCl 50 MG TAB PO PRN (20:04)
[2021-07-20] MEDS: Atorvastatin Calcium 40 MG TAB PO SCH (20:05)
[2021-07-20] MEDS: busPIRone HCl 5 MG TAB PO SCH (20:05)
[2021-07-20] MEDS: Melatonin 3 MG TAB PO PRN (20:05)
[2021-07-21] MEDS: Levothyroxine Sodium 75 MCG TAB PO SCH (05:00)
[2021-07-21] MEDS: Acetaminophen 325 MG TAB PO PRN ×2 (05:00→20:50)
[2021-07-21] MEDS: Mometasone/Formoterol 200/5 60 PUFF INH SCH ×2 (08:02→20:52)
[2021-07-21] MEDS: Furosemide 20 MG TAB PO SCH ×2 (08:03→20:53)
[2021-07-21] MEDS: Carvedilol 3.125 MG TAB PO SCH ×2 (08:03→17:00)
[2021-07-21] MEDS: Loratadine 10 MG TAB PO SCH (08:03)
[2021-07-21] MEDS: Digoxin 0.125 MG TAB PO SCH (08:03)
[2021-07-21] MEDS: Aspirin 81 mg Enteric Coated Tablet PO SCH (08:03)
[2021-07-21] MEDS: Cholecalciferol 1,000 UNITS (25 MCG) TAB PO SCH (08:03)
[2021-07-21] MEDS: predniSONE 20 MG TAB PO SCH (08:03)
[2021-07-21] MEDS: Stress 600 With Zinc 1 TAB PO SCH ×2 (08:04→08:05)
[2021-07-21] MEDS: Potassium Chloride 20 MEQ TAB PO SCH ×2 (08:05→20:53)
[2021-07-21] MEDS: Ezetimibe 10 MG TAB PO SCH (08:05)
[2021-07-21] MEDS: Multivitamin W/ Minerals 1 TAB PO SCH (08:05)
[2021-07-21] MEDS: guaiFENesin ER 600 MG TAB PO SCH (08:05)
[2021-07-21] MEDS: FLUoxetine HCl 20 MG CAP PO SCH (08:06)
[2021-07-21] MEDS: Melatonin 3 MG TAB PO PRN (20:50)
[2021-07-21] MEDS: Calcium Carbonate 500 MG ChewTAB PO PRN (20:50)
[2021-07-21] MEDS: busPIRone HCl 5 MG TAB PO SCH (20:52)
[2021-07-21] MEDS: Atorvastatin Calcium 40 MG TAB PO SCH (20:53)
[2021-07-22] MEDS: traMADol HCl 50 MG TAB PO PRN (02:54)
[2021-07-22] MEDS: Levothyroxine Sodium 75 MCG TAB PO SCH (06:14)
[2021-07-22] MEDS: guaiFENesin ER 600 MG TAB PO SCH (08:55)
[2021-07-22] MEDS: Multivitamin W/ Minerals 1 TAB PO SCH (08:56)
[2021-07-22] MEDS: predniSONE 20 MG TAB PO SCH (08:56)
[2021-07-22] MEDS: Carvedilol 3.125 MG TAB PO SCH ×2 (08:56→16:36)
[2021-07-22] MEDS: Aspirin 81 mg Enteric Coated Tablet PO SCH (08:56)
[2021-07-22] MEDS: Loratadine 10 MG TAB PO SCH (08:56)
[2021-07-22] MEDS: Digoxin 0.125 MG TAB PO SCH (08:56)
[2021-07-22] MEDS: Ezetimibe 10 MG TAB PO SCH (08:56)
[2021-07-22] MEDS: Cholecalciferol 1,000 UNITS (25 MCG) TAB PO SCH (08:56)
[2021-07-22] MEDS: FLUoxetine HCl 20 MG CAP PO SCH (08:56)
[2021-07-22] MEDS: Furosemide 20 MG TAB PO SCH ×2 (08:56→21:56)
[2021-07-22] MEDS: Mometasone/Formoterol 200/5 60 PUFF INH SCH ×2 (08:57→21:57)
[2021-07-22] MEDS: Potassium Chloride 20 MEQ TAB PO SCH ×2 (08:58→21:57)
[2021-07-22] MEDS: Calcium Carbonate 500 MG ChewTAB PO PRN ×2 (13:14→18:30)
[2021-07-22] MEDS: Atorvastatin Calcium 40 MG TAB PO SCH (21:56)
[2021-07-22] MEDS: busPIRone HCl 5 MG TAB PO SCH (22:01)
[2021-07-22] MEDS: Melatonin 3 MG TAB PO PRN (22:02)
[2021-07-23] MEDS: Levothyroxine Sodium 75 MCG TAB PO SCH (05:24)
[2021-07-23] MEDS: Mometasone/Formoterol 200/5 60 PUFF INH SCH ×2 (08:03→21:03)
[2021-07-23] MEDS: FLUoxetine HCl 20 MG CAP PO SCH (08:04)
[2021-07-23] MEDS: predniSONE 20 MG TAB PO SCH (08:04)
[2021-07-23] MEDS: Furosemide 20 MG TAB PO SCH ×2 (08:04→21:05)
[2021-07-23] MEDS: Multivitamin W/ Minerals 1 TAB PO SCH (08:04)
[2021-07-23] MEDS: guaiFENesin ER 600 MG TAB PO SCH (08:04)
[2021-07-23] MEDS: Potassium Chloride 20 MEQ TAB PO SCH ×2 (08:04→21:04)
[2021-07-23] MEDS: Cholecalciferol 1,000 UNITS (25 MCG) TAB PO SCH (08:04)
[2021-07-23] MEDS: Carvedilol 3.125 MG TAB PO SCH ×2 (08:04→17:03)
[2021-07-23] MEDS: Aspirin 81 mg Enteric Coated Tablet PO SCH (08:04)
[2021-07-23] MEDS: Stress 600 With Zinc 1 TAB PO SCH (08:04)
[2021-07-23] MEDS: Digoxin 0.125 MG TAB PO SCH (08:04)
[2021-07-23] MEDS: Loratadine 10 MG TAB PO SCH (08:05)
[2021-07-23] MEDS: Ezetimibe 10 MG TAB PO SCH (08:05)
[2021-07-23] MEDS: Calcium Carbonate 500 MG ChewTAB PO PRN (11:27)
[2021-07-23] MEDS: Atorvastatin Calcium 40 MG TAB PO SCH (21:05)
[2021-07-23] MEDS: busPIRone HCl 5 MG TAB PO SCH (21:05)
[2021-07-23] MEDS: traMADol HCl 50 MG TAB PO PRN (22:23)
[2021-07-23] MEDS: Melatonin 3 MG TAB PO PRN (22:23)
[2021-07-24] MEDS: Levothyroxine Sodium 75 MCG TAB PO SCH (05:49)
[2021-07-24] MEDS: Mometasone/Formoterol 200/5 60 PUFF INH SCH ×2 (09:01→20:46)
[2021-07-24] MEDS: Potassium Chloride 20 MEQ TAB PO SCH ×2 (09:08→20:44)
[2021-07-24] MEDS: Cholecalciferol 1,000 UNITS (25 MCG) TAB PO SCH (09:08)
[2021-07-24] MEDS: Loratadine 10 MG TAB PO SCH (09:09)
[2021-07-24] MEDS: guaiFENesin ER 600 MG TAB PO SCH (09:09)
[2021-07-24] MEDS: Stress 600 With Zinc 1 TAB PO SCH (09:09)
[2021-07-24] MEDS: Multivitamin W/ Minerals 1 TAB PO SCH (09:09)
[2021-07-24] MEDS: Aspirin 81 mg Enteric Coated Tablet PO SCH (09:09)
[2021-07-24] MEDS: Digoxin 0.125 MG TAB PO SCH (09:09)
[2021-07-24] MEDS: predniSONE 20 MG TAB PO SCH ×2 (09:09→10:36)
[2021-07-24] MEDS: Ezetimibe 10 MG TAB PO SCH (09:10)
[2021-07-24] MEDS: FLUoxetine HCl 20 MG CAP PO SCH (09:10)
[2021-07-24] MEDS: Furosemide 20 MG TAB PO SCH ×2 (09:10→20:44)
[2021-07-24] MEDS: Carvedilol 3.125 MG TAB PO SCH ×2 (09:10→17:08)
[2021-07-24] MEDS: traMADol HCl 50 MG TAB PO PRN ×2 (14:17→22:01)
[2021-07-24] MEDS: Melatonin 3 MG TAB PO PRN (20:44)
[2021-07-24] MEDS: Atorvastatin Calcium 40 MG TAB PO SCH (20:44)
[2021-07-24] MEDS: busPIRone HCl 5 MG TAB PO SCH (20:44)
[2021-07-25] MEDS: Levothyroxine Sodium 75 MCG TAB PO SCH (05:27)
[2021-07-25] MEDS: Cholecalciferol 1,000 UNITS (25 MCG) TAB PO SCH (08:44)
[2021-07-25] MEDS: predniSONE 20 MG TAB PO SCH (08:45)
[2021-07-25] MEDS: Loratadine 10 MG TAB PO SCH (08:45)
[2021-07-25] MEDS: Digoxin 0.125 MG TAB PO SCH (08:45)
[2021-07-25] MEDS: Carvedilol 3.125 MG TAB PO SCH ×2 (08:45→16:36)
[2021-07-25] MEDS: FLUoxetine HCl 20 MG CAP PO SCH (08:46)
[2021-07-25] MEDS: Potassium Chloride 20 MEQ TAB PO SCH ×2 (08:46→21:09)
[2021-07-25] MEDS: guaiFENesin ER 600 MG TAB PO SCH (08:46)
[2021-07-25] MEDS: Furosemide 20 MG TAB PO SCH ×2 (08:46→21:09)
[2021-07-25] MEDS: Acetaminophen 325 MG TAB PO PRN (08:46)
[2021-07-25] MEDS: Stress 600 With Zinc 1 TAB PO SCH (08:46)
[2021-07-25] MEDS: Multivitamin W/ Minerals 1 TAB PO SCH (08:46)
[2021-07-25] MEDS: Aspirin 81 mg Enteric Coated Tablet PO SCH (08:46)
[2021-07-25] MEDS: Mometasone/Formoterol 200/5 60 PUFF INH SCH ×2 (08:47→21:13)
[2021-07-25] MEDS: Ezetimibe 10 MG TAB PO SCH (08:47)
[2021-07-25] MEDS: busPIRone HCl 5 MG TAB PO PRN (08:56)
[2021-07-25] MEDS: traMADol HCl 50 MG TAB PO PRN (21:09)
[2021-07-25] MEDS: busPIRone HCl 5 MG TAB PO SCH (21:09)
[2021-07-25] MEDS: Melatonin 3 MG TAB PO PRN (21:09)
[2021-07-25] MEDS: Atorvastatin Calcium 40 MG TAB PO SCH (21:09)
[2021-07-26] MEDS: Levothyroxine Sodium 75 MCG TAB PO SCH (06:07)
[2021-07-26] MEDS: Mometasone/Formoterol 200/5 60 PUFF INH SCH ×2 (08:00→20:06)
[2021-07-26] MEDS: Aspirin 81 mg Enteric Coated Tablet PO SCH (08:02)
[2021-07-26] MEDS: Stress 600 With Zinc 1 TAB PO SCH (08:02)
[2021-07-26] MEDS: Furosemide 20 MG TAB PO SCH ×2 (08:02→20:08)
[2021-07-26] MEDS: Multivitamin W/ Minerals 1 TAB PO SCH (08:02)
[2021-07-26] MEDS: predniSONE 20 MG TAB PO SCH (08:02)
[2021-07-26] MEDS: Ezetimibe 10 MG TAB PO SCH (08:02)
[2021-07-26] MEDS: Cholecalciferol 1,000 UNITS (25 MCG) TAB PO SCH (08:02)
[2021-07-26] MEDS: FLUoxetine HCl 20 MG CAP PO SCH (08:02)
[2021-07-26] MEDS: guaiFENesin ER 600 MG TAB PO SCH (08:03)
[2021-07-26] MEDS: Potassium Chloride 20 MEQ TAB PO SCH ×2 (08:03→20:08)
[2021-07-26] MEDS: Digoxin 0.125 MG TAB PO SCH (08:03)
[2021-07-26] MEDS: Loratadine 10 MG TAB PO SCH (08:03)
[2021-07-26] MEDS: Carvedilol 3.125 MG TAB PO SCH ×2 (08:03→17:26)
[2021-07-26] MEDS: busPIRone HCl 5 MG TAB PO PRN (13:21)
[2021-07-26 17:42] LABS: SARS-CoV-2 PCR by NAA Not Detected (NotDetected)
[2021-07-26] MEDS: Atorvastatin Calcium 40 MG TAB PO SCH (20:08)
[2021-07-26] MEDS: busPIRone HCl 5 MG TAB PO SCH (20:08)
[2021-07-26] MEDS: Melatonin 3 MG TAB PO PRN (20:09)
[2021-07-27] MEDS: Levothyroxine Sodium 75 MCG TAB PO SCH (05:37)
[2021-07-27] MEDS: busPIRone HCl 5 MG TAB PO PRN (07:25)
[2021-07-27] MEDS: Mometasone/Formoterol 200/5 60 PUFF INH SCH ×2 (07:49→20:07)
[2021-07-27] MEDS: guaiFENesin ER 600 MG TAB PO SCH (07:50)
[2021-07-27] MEDS: FLUoxetine HCl 20 MG CAP PO SCH (07:50)
[2021-07-27] MEDS: Multivitamin W/ Minerals 1 TAB PO SCH (07:50)
[2021-07-27] MEDS: Aspirin 81 mg Enteric Coated Tablet PO SCH (07:50)
[2021-07-27] MEDS: Potassium Chloride 20 MEQ TAB PO SCH ×2 (07:51→20:06)
[2021-07-27] MEDS: predniSONE 20 MG TAB PO SCH (07:51)
[2021-07-27] MEDS: Ezetimibe 10 MG TAB PO SCH (07:51)
[2021-07-27] MEDS: Stress 600 With Zinc 1 TAB PO SCH (07:51)
[2021-07-27] MEDS: Furosemide 20 MG TAB PO SCH ×2 (07:52→20:06)
[2021-07-27] MEDS: Carvedilol 3.125 MG TAB PO SCH ×2 (07:52→16:42)
[2021-07-27] MEDS: Digoxin 0.125 MG TAB PO SCH (07:52)
[2021-07-27] MEDS: Loratadine 10 MG TAB PO SCH (07:52)
[2021-07-27] MEDS: Cholecalciferol 1,000 UNITS (25 MCG) TAB PO SCH (07:58)
[2021-07-27] MEDS: Melatonin 3 MG TAB PO PRN (20:06)
[2021-07-27] MEDS: busPIRone HCl 5 MG TAB PO SCH (20:06)
[2021-07-27] MEDS: Atorvastatin Calcium 40 MG TAB PO SCH (20:06)
[2021-07-27] MEDS: Acetaminophen 325 MG TAB PO PRN (23:41)
[2021-07-28] MEDS: Levothyroxine Sodium 75 MCG TAB PO SCH (05:13)
[2021-07-28] MEDS: Acetaminophen 325 MG TAB PO PRN (07:10)
[2021-07-28] MEDS: Ezetimibe 10 MG TAB PO SCH (08:10)
[2021-07-28] MEDS: FLUoxetine HCl 20 MG CAP PO SCH (08:10)
[2021-07-28] MEDS: Mometasone/Formoterol 200/5 60 PUFF INH SCH ×2 (08:10→20:46)
[2021-07-28] MEDS: Aspirin 81 mg Enteric Coated Tablet PO SCH (08:10)
[2021-07-28] MEDS: Potassium Chloride 20 MEQ TAB PO SCH ×2 (08:11→20:45)
[2021-07-28] MEDS: Furosemide 20 MG TAB PO SCH ×2 (08:11→20:44)
[2021-07-28] MEDS: busPIRone HCl 5 MG TAB PO PRN (08:11)
[2021-07-28] MEDS: Loratadine 10 MG TAB PO SCH (08:11)
[2021-07-28] MEDS: guaiFENesin ER 600 MG TAB PO SCH (08:11)
[2021-07-28] MEDS: Multivitamin W/ Minerals 1 TAB PO SCH (08:11)
[2021-07-28] MEDS: Cholecalciferol 1,000 UNITS (25 MCG) TAB PO SCH (08:11)
[2021-07-28] MEDS: Stress 600 With Zinc 1 TAB PO SCH (08:11)
[2021-07-28] MEDS: Carvedilol 3.125 MG TAB PO SCH ×2 (08:11→16:31)
[2021-07-28] MEDS: predniSONE 20 MG TAB PO SCH (08:11)
[2021-07-28] MEDS: Digoxin 0.125 MG TAB PO SCH (08:14)
[2021-07-28] MEDS: busPIRone HCl 5 MG TAB PO SCH (20:44)
[2021-07-28] MEDS: Atorvastatin Calcium 40 MG TAB PO SCH (20:44)
[2021-07-28] MEDS: Melatonin 3 MG TAB PO PRN (20:45)
[2021-07-29] MEDS: Levothyroxine Sodium 75 MCG TAB PO SCH (06:02)
[2021-07-29] MEDS: predniSONE 20 MG TAB PO SCH (09:22)
[2021-07-29] MEDS: Ezetimibe 10 MG TAB PO SCH (09:22)
[2021-07-29] MEDS: Aspirin 81 mg Enteric Coated Tablet PO SCH (09:22)
[2021-07-29] MEDS: Carvedilol 3.125 MG TAB PO SCH ×2 (09:23→17:00)
[2021-07-29] MEDS: Cholecalciferol 1,000 UNITS (25 MCG) TAB PO SCH (09:23)
[2021-07-29] MEDS: guaiFENesin ER 600 MG TAB PO SCH (09:23)
[2021-07-29] MEDS: Potassium Chloride 20 MEQ TAB PO SCH ×2 (09:23→20:26)
[2021-07-29] MEDS: Furosemide 40 MG TAB PO SCH (09:23)
[2021-07-29] MEDS: Stress 600 With Zinc 1 TAB PO SCH (09:23)
[2021-07-29] MEDS: busPIRone HCl 5 MG TAB PO PRN (09:23)
[2021-07-29] MEDS: Loratadine 10 MG TAB PO SCH (09:24)
[2021-07-29] MEDS: Acetaminophen 325 MG TAB PO PRN (09:24)
[2021-07-29] MEDS: FLUoxetine HCl 20 MG CAP PO SCH (09:24)
[2021-07-29] MEDS: Digoxin 0.125 MG TAB PO SCH (09:24)
[2021-07-29] MEDS: Multivitamin W/ Minerals 1 TAB PO SCH (09:24)
[2021-07-29] MEDS: Mometasone/Formoterol 200/5 60 PUFF INH SCH ×2 (09:25→20:28)
[2021-07-29] MEDS: traMADol HCl 50 MG TAB PO PRN (13:32)
[2021-07-29] MEDS: Atorvastatin Calcium 40 MG TAB PO SCH (20:26)
[2021-07-29] MEDS: busPIRone HCl 5 MG TAB PO SCH (20:27)
[2021-07-29] MEDS: Furosemide 20 MG TAB PO SCH (20:27)
[2021-07-29] MEDS: Melatonin 3 MG TAB PO PRN (20:59)
[2021-07-30] MEDS: Levothyroxine Sodium 75 MCG TAB PO SCH (05:40)
[2021-07-30] MEDS: busPIRone HCl 5 MG TAB PO PRN (07:21)
[2021-07-30] MEDS: predniSONE 20 MG TAB PO SCH (09:20)
[2021-07-30] MEDS: Furosemide 40 MG TAB PO SCH (09:20)
[2021-07-30] MEDS: Aspirin 81 mg Enteric Coated Tablet PO SCH (09:20)
[2021-07-30] MEDS: Cholecalciferol 1,000 UNITS (25 MCG) TAB PO SCH (09:20)
[2021-07-30] MEDS: Carvedilol 3.125 MG TAB PO SCH ×2 (09:20→17:04)
[2021-07-30] MEDS: FLUoxetine HCl 20 MG CAP PO SCH (09:21)
[2021-07-30] MEDS: Potassium Chloride 20 MEQ TAB PO SCH ×2 (09:21→20:11)
[2021-07-30] MEDS: Loratadine 10 MG TAB PO SCH (09:21)
[2021-07-30] MEDS: Mometasone/Formoterol 200/5 60 PUFF INH SCH ×2 (09:21→20:12)
[2021-07-30] MEDS: Ezetimibe 10 MG TAB PO SCH (09:21)
[2021-07-30] MEDS: Digoxin 0.125 MG TAB PO SCH (09:21)
[2021-07-30] MEDS: Stress 600 With Zinc 1 TAB PO SCH (09:21)
[2021-07-30] MEDS: guaiFENesin ER 600 MG TAB PO SCH (09:21)
[2021-07-30] MEDS: Multivitamin W/ Minerals 1 TAB PO SCH (09:21)
[2021-07-30] MEDS: Acetaminophen 325 MG TAB PO PRN (17:04)
[2021-07-30] MEDS: traMADol HCl 50 MG TAB PO PRN (20:10)
[2021-07-30] MEDS: Atorvastatin Calcium 40 MG TAB PO SCH (20:10)
[2021-07-30] MEDS: busPIRone HCl 5 MG TAB PO SCH (20:11)
[2021-07-30] MEDS: Furosemide 20 MG TAB PO SCH (20:11)
[2021-07-31] MEDS: Levothyroxine Sodium 75 MCG TAB PO SCH (05:38)
[2021-07-31 05:56] LABS: Anion Gap 17 mmol/L (10-20); BUN (Urea Nitrogen) 17 mg/dL (9.8-20.1); Calc. Creatinine Clearance 77 mL/min (70-130); Calcium 9.9 mg/dL (7.8-10.44); Glucose 85 mg/dL (83-110)
[2021-07-31 06:03] LABS: Chloride 88 mmol/L (98-107); Potassium 4.1 mmol/L (3.5-5.1); Sodium 144 mmol/L (136-145)
[2021-07-31 06:12] LABS: Carbon Dioxide 46 mmol/L (23-31)
[2021-07-31] MEDS: Loratadine 10 MG TAB PO SCH (08:35)
[2021-07-31] MEDS: Multivitamin W/ Minerals 1 TAB PO SCH (08:35)
[2021-07-31] MEDS: Ezetimibe 10 MG TAB PO SCH (08:35)
[2021-07-31] MEDS: Cholecalciferol 1,000 UNITS (25 MCG) TAB PO SCH (08:35)
[2021-07-31] MEDS: guaiFENesin ER 600 MG TAB PO SCH (08:35)
[2021-07-31] MEDS: Furosemide 40 MG TAB PO SCH (08:35)
[2021-07-31] MEDS: Aspirin 81 mg Enteric Coated Tablet PO SCH (08:35)
[2021-07-31] MEDS: Digoxin 0.125 MG TAB PO SCH (08:35)
[2021-07-31] MEDS: Carvedilol 3.125 MG TAB PO SCH ×2 (08:35→17:10)
[2021-07-31] MEDS: predniSONE 20 MG TAB PO SCH (08:36)
[2021-07-31] MEDS: Mometasone/Formoterol 200/5 60 PUFF INH SCH ×2 (08:36→20:26)
[2021-07-31] MEDS: Potassium Chloride 20 MEQ TAB PO SCH ×2 (08:36→20:24)
[2021-07-31] MEDS: FLUoxetine HCl 20 MG CAP PO SCH (08:36)
[2021-07-31] MEDS: Stress 600 With Zinc 1 TAB PO SCH (08:37)
[2021-07-31] MEDS: Acetaminophen 325 MG TAB PO PRN (08:38)
[2021-07-31] MEDS: busPIRone HCl 5 MG TAB PO PRN (11:07)
[2021-07-31] MEDS: traMADol HCl 50 MG TAB PO PRN (11:10)
[2021-07-31] MEDS: Atorvastatin Calcium 40 MG TAB PO SCH (20:25)
[2021-07-31] MEDS: busPIRone HCl 5 MG TAB PO SCH (20:25)
[2021-07-31] MEDS: Furosemide 20 MG TAB PO SCH (20:25)
[2021-08-01] MEDS: Levothyroxine Sodium 75 MCG TAB PO SCH (05:17)
[2021-08-01] MEDS: Digoxin 0.125 MG TAB PO SCH (08:13)
[2021-08-01] MEDS: Potassium Chloride 20 MEQ TAB PO SCH ×2 (08:13→20:11)
[2021-08-01] MEDS: Multivitamin W/ Minerals 1 TAB PO SCH (08:13)
[2021-08-01] MEDS: Loratadine 10 MG TAB PO SCH (08:13)
[2021-08-01] MEDS: Aspirin 81 mg Enteric Coated Tablet PO SCH (08:13)
[2021-08-01] MEDS: Cholecalciferol (Vitamin D3) 5,000 UNITS CAPSULE PO SCH (08:13)
[2021-08-01] MEDS: guaiFENesin ER 600 MG TAB PO SCH (08:14)
[2021-08-01] MEDS: predniSONE 20 MG TAB PO SCH (08:14)
[2021-08-01] MEDS: Ezetimibe 10 MG TAB PO SCH (08:14)
[2021-08-01] MEDS: Furosemide 20 MG TAB PO SCH ×2 (08:14→20:11)
[2021-08-01] MEDS: Carvedilol 3.125 MG TAB PO SCH ×2 (08:14→17:21)
[2021-08-01] MEDS: Stress 600 With Zinc 1 TAB PO SCH (08:14)
[2021-08-01] MEDS: FLUoxetine HCl 20 MG CAP PO SCH (08:14)
[2021-08-01] MEDS: Mometasone/Formoterol 200/5 60 PUFF INH SCH ×2 (08:15→20:10)
[2021-08-01] MEDS: busPIRone HCl 5 MG TAB PO PRN (12:51)
[2021-08-01 18:55] LABS: SARS-CoV-2 PCR by NAA Not Detected (NotDetected)
[2021-08-01] MEDS: busPIRone HCl 5 MG TAB PO SCH (20:10)
[2021-08-01] MEDS: Atorvastatin Calcium 40 MG TAB PO SCH (20:11)
[2021-08-01] MEDS: Melatonin 3 MG TAB PO PRN (20:13)
[2021-08-02] MEDS: traMADol HCl 50 MG TAB PO PRN (07:17)
[2021-08-02] MEDS: busPIRone HCl 5 MG TAB PO PRN (07:18)
[2021-08-02] MEDS: Levothyroxine Sodium 75 MCG TAB PO SCH (07:30)
[2021-08-02] MEDS: Carvedilol 3.125 MG TAB PO SCH ×2 (08:54→17:20)
[2021-08-02] MEDS: Cholecalciferol (Vitamin D3) 5,000 UNITS CAPSULE PO SCH (08:54)
[2021-08-02] MEDS: Ezetimibe 10 MG TAB PO SCH (08:54)
[2021-08-02] MEDS: Furosemide 20 MG TAB PO SCH ×2 (08:55→20:25)
[2021-08-02] MEDS: guaiFENesin ER 600 MG TAB PO SCH (08:55)
[2021-08-02] MEDS: Stress 600 With Zinc 1 TAB PO SCH (08:55)
[2021-08-02] MEDS: predniSONE 20 MG TAB PO SCH (08:55)
[2021-08-02] MEDS: Digoxin 0.125 MG TAB PO SCH (08:55)
[2021-08-02] MEDS: Loratadine 10 MG TAB PO SCH (08:55)
[2021-08-02] MEDS: Potassium Chloride 20 MEQ TAB PO SCH ×2 (08:55→20:25)
[2021-08-02] MEDS: FLUoxetine HCl 20 MG CAP PO SCH (08:55)
[2021-08-02] MEDS: Multivitamin W/ Minerals 1 TAB PO SCH (08:55)
[2021-08-02] MEDS: Aspirin 81 mg Enteric Coated Tablet PO SCH (08:55)
[2021-08-02] MEDS: Mometasone/Formoterol 200/5 60 PUFF INH SCH ×2 (08:56→20:26)
[2021-08-02] MEDS: Atorvastatin Calcium 40 MG TAB PO SCH (20:25)
[2021-08-02] MEDS: busPIRone HCl 5 MG TAB PO SCH (20:26)
[2021-08-03] MEDS: Levothyroxine Sodium 75 MCG TAB PO SCH (06:00)
[2021-08-03] MEDS: FLUoxetine HCl 20 MG CAP PO SCH (08:05)
[2021-08-03] MEDS: Cholecalciferol (Vitamin D3) 5,000 UNITS CAPSULE PO SCH (08:05)
[2021-08-03] MEDS: Multivitamin W/ Minerals 1 TAB PO SCH (08:05)
[2021-08-03] MEDS: guaiFENesin ER 600 MG TAB PO SCH (08:05)
[2021-08-03] MEDS: Carvedilol 3.125 MG TAB PO SCH ×2 (08:05→16:51)
[2021-08-03] MEDS: Aspirin 81 mg Enteric Coated Tablet PO SCH (08:05)
[2021-08-03] MEDS: predniSONE 20 MG TAB PO SCH (08:05)
[2021-08-03] MEDS: Loratadine 10 MG TAB PO SCH (08:05)
[2021-08-03] MEDS: Ezetimibe 10 MG TAB PO SCH (08:05)
[2021-08-03] MEDS: Potassium Chloride 20 MEQ TAB PO SCH ×2 (08:05→20:39)
[2021-08-03] MEDS: Stress 600 With Zinc 1 TAB PO SCH (08:05)
[2021-08-03] MEDS: Furosemide 20 MG TAB PO SCH ×2 (08:05→20:39)
[2021-08-03] MEDS: Digoxin 0.125 MG TAB PO SCH (08:06)
[2021-08-03] MEDS: Mometasone/Formoterol 200/5 60 PUFF INH SCH ×2 (08:07→20:38)
[2021-08-03] MEDS: busPIRone HCl 5 MG TAB PO PRN (08:10)
[2021-08-03] MEDS: Calcium Carbonate 500 MG ChewTAB PO PRN (12:51)
[2021-08-03] MEDS: Atorvastatin Calcium 40 MG TAB PO SCH (20:38)
[2021-08-03] MEDS: busPIRone HCl 5 MG TAB PO SCH (20:38)
[2021-08-03] MEDS: Melatonin 3 MG TAB PO PRN (20:39)
[2021-08-04] MEDS: Levothyroxine Sodium 75 MCG TAB PO SCH (05:36)
[2021-08-04] MEDS: Furosemide 20 MG TAB PO SCH ×2 (07:49→20:20)
[2021-08-04] MEDS: Stress 600 With Zinc 1 TAB PO SCH (07:49)
[2021-08-04] MEDS: Loratadine 10 MG TAB PO SCH (07:49)
[2021-08-04] MEDS: FLUoxetine HCl 20 MG CAP PO SCH (07:49)
[2021-08-04] MEDS: Cholecalciferol (Vitamin D3) 5,000 UNITS CAPSULE PO SCH (07:49)
[2021-08-04] MEDS: Ezetimibe 10 MG TAB PO SCH (07:49)
[2021-08-04] MEDS: predniSONE 20 MG TAB PO SCH (07:49)
[2021-08-04] MEDS: Multivitamin W/ Minerals 1 TAB PO SCH (07:50)
[2021-08-04] MEDS: Potassium Chloride 20 MEQ TAB PO SCH ×2 (07:50→20:20)
[2021-08-04] MEDS: guaiFENesin ER 600 MG TAB PO SCH (07:50)
[2021-08-04] MEDS: Aspirin 81 mg Enteric Coated Tablet PO SCH (07:50)
[2021-08-04] MEDS: Digoxin 0.125 MG TAB PO SCH (07:50)
[2021-08-04] MEDS: Carvedilol 3.125 MG TAB PO SCH ×2 (07:50→16:56)
[2021-08-04] MEDS: Mometasone/Formoterol 200/5 60 PUFF INH SCH ×2 (07:55→20:21)
[2021-08-04] MEDS: Lantiseptic Ointment 130 GM JAR TOP PRN (10:14)
[2021-08-04] MEDS: busPIRone HCl 5 MG TAB PO SCH (20:20)
[2021-08-04] MEDS: Atorvastatin Calcium 40 MG TAB PO SCH (20:20)
[2021-08-05] MEDS: Calcium Carbonate 500 MG ChewTAB PO PRN (01:42)
[2021-08-05] MEDS: Acetaminophen 325 MG TAB PO PRN (04:24)
[2021-08-05] MEDS: Levothyroxine Sodium 75 MCG TAB PO SCH (05:58)
[2021-08-05] MEDS: Stress 600 With Zinc 1 TAB PO SCH (08:19)
[2021-08-05] MEDS: Carvedilol 3.125 MG TAB PO SCH ×2 (08:19→16:56)
[2021-08-05] MEDS: Potassium Chloride 20 MEQ TAB PO SCH ×2 (08:19→21:20)
[2021-08-05] MEDS: FLUoxetine HCl 20 MG CAP PO SCH (08:19)
[2021-08-05] MEDS: Aspirin 81 mg Enteric Coated Tablet PO SCH (08:19)
[2021-08-05] MEDS: Furosemide 20 MG TAB PO SCH (08:19)
[2021-08-05] MEDS: predniSONE 20 MG TAB PO SCH (08:19)
[2021-08-05] MEDS: Cholecalciferol (Vitamin D3) 5,000 UNITS CAPSULE PO SCH (08:19)
[2021-08-05] MEDS: guaiFENesin ER 600 MG TAB PO SCH (08:19)
[2021-08-05] MEDS: Ezetimibe 10 MG TAB PO SCH (08:19)
[2021-08-05] MEDS: Loratadine 10 MG TAB PO SCH (08:19)
[2021-08-05] MEDS: Multivitamin W/ Minerals 1 TAB PO SCH (08:19)
[2021-08-05] MEDS: Mometasone/Formoterol 200/5 60 PUFF INH SCH ×2 (08:19→21:20)
[2021-08-05] MEDS: Digoxin 0.125 MG TAB PO SCH (08:20)
[2021-08-05] MEDS ORDERED: Furosemide 20 MG TAB PO SCH (16:15)
[2021-08-05] MEDS: busPIRone HCl 5 MG TAB PO SCH (21:20)
[2021-08-05] MEDS: Atorvastatin Calcium 40 MG TAB PO SCH (21:20)
[2021-08-05] MEDS: Melatonin 3 MG TAB PO PRN (21:20)
[2021-08-06] MEDS: Levothyroxine Sodium 75 MCG TAB PO SCH (05:43)
[2021-08-06] MEDS: Mometasone/Formoterol 200/5 60 PUFF INH SCH ×2 (07:47→20:27)
[2021-08-06] MEDS: FLUoxetine HCl 20 MG CAP PO SCH (07:48)
[2021-08-06] MEDS: Stress 600 With Zinc 1 TAB PO SCH (07:48)
[2021-08-06] MEDS: guaiFENesin ER 600 MG TAB PO SCH (07:48)
[2021-08-06] MEDS: Carvedilol 3.125 MG TAB PO SCH ×2 (07:48→16:42)
[2021-08-06] MEDS: Potassium Chloride 20 MEQ TAB PO SCH ×2 (07:48→20:11)
[2021-08-06] MEDS: Multivitamin W/ Minerals 1 TAB PO SCH (07:48)
[2021-08-06] MEDS: Loratadine 10 MG TAB PO SCH (07:48)
[2021-08-06] MEDS: predniSONE 20 MG TAB PO SCH (07:48)
[2021-08-06] MEDS: Aspirin 81 mg Enteric Coated Tablet PO SCH (07:48)
[2021-08-06] MEDS: Cholecalciferol (Vitamin D3) 5,000 UNITS CAPSULE PO SCH (07:48)
[2021-08-06] MEDS: Furosemide 20 MG TAB PO SCH ×2 (07:48→13:26)
[2021-08-06] MEDS: Digoxin 0.125 MG TAB PO SCH (07:49)
[2021-08-06] MEDS: Ezetimibe 10 MG TAB PO SCH (07:49)
[2021-08-06] MEDS: busPIRone HCl 5 MG TAB PO SCH (20:10)
[2021-08-06] MEDS: Atorvastatin Calcium 40 MG TAB PO SCH (20:11)
[2021-08-06] MEDS: Melatonin 3 MG TAB PO PRN (20:27)
[2021-08-07] MEDS: Levothyroxine Sodium 75 MCG TAB PO SCH (05:04)
[2021-08-07] MEDS: Acetaminophen 325 MG TAB PO PRN (09:57)
[2021-08-07] MEDS: Cholecalciferol (Vitamin D3) 5,000 UNITS CAPSULE PO SCH (09:57)
[2021-08-07] MEDS: predniSONE 20 MG TAB PO SCH (09:57)
[2021-08-07] MEDS: Ezetimibe 10 MG TAB PO SCH (09:57)
[2021-08-07] MEDS: busPIRone HCl 5 MG TAB PO PRN (09:57)
[2021-08-07] MEDS: FLUoxetine HCl 20 MG CAP PO SCH (09:57)
[2021-08-07] MEDS: Multivitamin W/ Minerals 1 TAB PO SCH (09:57)
[2021-08-07] MEDS: guaiFENesin ER 600 MG TAB PO SCH (09:58)
[2021-08-07] MEDS: Furosemide 20 MG TAB PO SCH ×2 (09:58→14:08)
[2021-08-07] MEDS: Aspirin 81 mg Enteric Coated Tablet PO SCH (09:58)
[2021-08-07] MEDS: Stress 600 With Zinc 1 TAB PO SCH (09:58)
[2021-08-07] MEDS: Digoxin 0.125 MG TAB PO SCH (09:58)
[2021-08-07] MEDS: Potassium Chloride 20 MEQ TAB PO SCH ×2 (09:58→20:41)
[2021-08-07] MEDS: Carvedilol 3.125 MG TAB PO SCH ×2 (09:58→17:06)
[2021-08-07] MEDS: Loratadine 10 MG TAB PO SCH (09:58)
[2021-08-07] MEDS: Mometasone/Formoterol 200/5 60 PUFF INH SCH ×2 (09:59→20:39)
[2021-08-07] MEDS: busPIRone HCl 5 MG TAB PO SCH (20:40)
[2021-08-07] MEDS: Atorvastatin Calcium 40 MG TAB PO SCH (20:41)
[2021-08-07] MEDS: Melatonin 3 MG TAB PO PRN (20:44)
[2021-08-08] MEDS: Levothyroxine Sodium 75 MCG TAB PO SCH (05:11)
[2021-08-08 05:36] LABS: #Basophils 0.1 thou/uL (0.0-0.2); #Eosinphils 0.1 thou/uL (0.0-0.7); #Lymphocytes 1.9 thou/uL (1.20-3.40); #Neutrophils 4.5 thou/uL (1.40-6.50); %Lymphocytes 25.5 % (21.0-51.0); %Monocytes 12.7 % (0.0-10.0); %Neutrophils 59.7 % (42.0-75.0); Mean Corpuscular HGB CONC 30.8 g/dL (32.0-36.0); Mean Corpuscular Hemoglobin 28.5 pg (27.0-31.0); Mean Corpuscular Volume 92.7 fL (78.0-98.0); Mean Platelet Volume 5.9 fL (7.4-10.4); Platelet Count 341 thou/uL (130-400); RBC Distribution Width 17.8 % (11.5-14.5); White Blood Cell (WBC) Count 7.4 thou/uL (4.8-10.8)
[2021-08-08 05:50] LABS: Anion Gap 13 mmol/L (10-20); BUN (Urea Nitrogen) 18 mg/dL (9.8-20.1); Calc. Creatinine Clearance 62 mL/min (70-130); Calcium 9.6 mg/dL (7.8-10.44); Glucose 84 mg/dL (83-110)
[2021-08-08 05:51] LABS: Carbon Dioxide 42 mmol/L (23-31); Chloride 94 mmol/L (98-107); Sodium 145 mmol/L (136-145)
[2021-08-08] MEDS: FLUoxetine HCl 20 MG CAP PO SCH (09:04)
[2021-08-08] MEDS: Stress 600 With Zinc 1 TAB PO SCH (09:04)
[2021-08-08] MEDS: Multivitamin W/ Minerals 1 TAB PO SCH (09:04)
[2021-08-08] MEDS: Mometasone/Formoterol 200/5 60 PUFF INH SCH ×2 (09:04→20:30)
[2021-08-08] MEDS: Digoxin 0.125 MG TAB PO SCH (09:04)
[2021-08-08] MEDS: Ezetimibe 10 MG TAB PO SCH (09:04)
[2021-08-08] MEDS: Furosemide 40 MG TAB PO SCH ×2 (09:04→14:14)
[2021-08-08] MEDS: guaiFENesin ER 600 MG TAB PO SCH (09:05)
[2021-08-08] MEDS: Potassium Chloride 20 MEQ TAB PO SCH ×2 (09:05→20:31)
[2021-08-08] MEDS: predniSONE 20 MG TAB PO SCH (09:05)
[2021-08-08] MEDS: Carvedilol 3.125 MG TAB PO SCH ×2 (09:05→17:42)
[2021-08-08] MEDS: Aspirin 81 mg Enteric Coated Tablet PO SCH (09:05)
[2021-08-08] MEDS: Cholecalciferol (Vitamin D3) 5,000 UNITS CAPSULE PO SCH (09:05)
[2021-08-08] MEDS: Loratadine 10 MG TAB PO SCH (09:05)
[2021-08-08] MEDS: busPIRone HCl 5 MG TAB PO PRN (11:30)
[2021-08-08 17:50] LABS: SARS-CoV-2 PCR by NAA Not Detected (NotDetected)
[2021-08-08] MEDS: Melatonin 3 MG TAB PO PRN (20:31)
[2021-08-08] MEDS: busPIRone HCl 5 MG TAB PO SCH (20:31)
[2021-08-08] MEDS: Atorvastatin Calcium 40 MG TAB PO SCH (20:31)
[2021-08-09] MEDS: Levothyroxine Sodium 75 MCG TAB PO SCH (05:23)
[2021-08-09] MEDS: FLUoxetine HCl 20 MG CAP PO SCH (07:53)
[2021-08-09] MEDS: Mometasone/Formoterol 200/5 60 PUFF INH SCH ×2 (07:53→20:28)
[2021-08-09] MEDS: Stress 600 With Zinc 1 TAB PO SCH (07:53)
[2021-08-09] MEDS: Cholecalciferol (Vitamin D3) 5,000 UNITS CAPSULE PO SCH (07:53)
[2021-08-09] MEDS: Potassium Chloride 20 MEQ TAB PO SCH ×2 (07:53→20:29)
[2021-08-09] MEDS: Furosemide 40 MG TAB PO SCH ×2 (07:53→14:02)
[2021-08-09] MEDS: Multivitamin W/ Minerals 1 TAB PO SCH (07:53)
[2021-08-09] MEDS: Ezetimibe 10 MG TAB PO SCH (07:53)
[2021-08-09] MEDS: Aspirin 81 mg Enteric Coated Tablet PO SCH (07:54)
[2021-08-09] MEDS: Loratadine 10 MG TAB PO SCH (07:54)
[2021-08-09] MEDS: predniSONE 20 MG TAB PO SCH (07:54)
[2021-08-09] MEDS: Carvedilol 3.125 MG TAB PO SCH ×2 (07:54→16:41)
[2021-08-09] MEDS: guaiFENesin ER 600 MG TAB PO SCH (07:54)
[2021-08-09] MEDS: Digoxin 0.125 MG TAB PO SCH (07:55)
[2021-08-09] MEDS: Melatonin 3 MG TAB PO PRN (20:29)
[2021-08-09] MEDS: Atorvastatin Calcium 40 MG TAB PO SCH (20:29)
[2021-08-09] MEDS: busPIRone HCl 5 MG TAB PO SCH (20:29)
[2021-08-09] MEDS: Acetaminophen 325 MG TAB PO PRN (22:05)
[2021-08-10] MEDS: Levothyroxine Sodium 75 MCG TAB PO SCH (05:23)
[2021-08-10] MEDS: Carvedilol 3.125 MG TAB PO SCH ×2 (07:50→16:36)
[2021-08-10] MEDS: Mometasone/Formoterol 200/5 60 PUFF INH SCH ×2 (07:50→20:42)
[2021-08-10] MEDS: Stress 600 With Zinc 1 TAB PO SCH (07:50)
[2021-08-10] MEDS: Multivitamin W/ Minerals 1 TAB PO SCH (07:50)
[2021-08-10] MEDS: Ezetimibe 10 MG TAB PO SCH (07:50)
[2021-08-10] MEDS: Aspirin 81 mg Enteric Coated Tablet PO SCH (07:51)
[2021-08-10] MEDS: Loratadine 10 MG TAB PO SCH (07:51)
[2021-08-10] MEDS: FLUoxetine HCl 20 MG CAP PO SCH (07:51)
[2021-08-10] MEDS: guaiFENesin ER 600 MG TAB PO SCH (07:51)
[2021-08-10] MEDS: Cholecalciferol (Vitamin D3) 5,000 UNITS CAPSULE PO SCH (07:51)
[2021-08-10] MEDS: Potassium Chloride 20 MEQ TAB PO SCH ×2 (07:51→20:44)
[2021-08-10] MEDS: predniSONE 20 MG TAB PO SCH (07:51)
[2021-08-10] MEDS: Furosemide 40 MG TAB PO SCH ×2 (07:51→13:17)
[2021-08-10] MEDS: Digoxin 0.125 MG TAB PO SCH (07:52)
[2021-08-10] MEDS: busPIRone HCl 5 MG TAB PO SCH (20:42)
[2021-08-10] MEDS: Melatonin 3 MG TAB PO PRN (20:43)
[2021-08-10] MEDS: Atorvastatin Calcium 40 MG TAB PO SCH (20:43)
[2021-08-11] MEDS: Levothyroxine Sodium 75 MCG TAB PO SCH (06:07)
[2021-08-11] MEDS: predniSONE 20 MG TAB PO SCH (08:13)
[2021-08-11] MEDS: Carvedilol 3.125 MG TAB PO SCH ×2 (08:13→17:26)
[2021-08-11] MEDS: Multivitamin W/ Minerals 1 TAB PO SCH (08:14)
[2021-08-11] MEDS: FLUoxetine HCl 20 MG CAP PO SCH (08:14)
[2021-08-11] MEDS: Aspirin 81 mg Enteric Coated Tablet PO SCH (08:14)
[2021-08-11] MEDS: Stress 600 With Zinc 1 TAB PO SCH (08:14)
[2021-08-11] MEDS: Potassium Chloride 20 MEQ TAB PO SCH ×2 (08:14→20:54)
[2021-08-11] MEDS: Ezetimibe 10 MG TAB PO SCH (08:14)
[2021-08-11] MEDS: Loratadine 10 MG TAB PO SCH (08:14)
[2021-08-11] MEDS: Cholecalciferol (Vitamin D3) 5,000 UNITS CAPSULE PO SCH (08:14)
[2021-08-11] MEDS: guaiFENesin ER 600 MG TAB PO SCH (08:15)
[2021-08-11] MEDS: Furosemide 40 MG TAB PO SCH ×2 (08:15→13:07)
[2021-08-11] MEDS: Digoxin 0.125 MG TAB PO SCH (08:15)
[2021-08-11] MEDS: Mometasone/Formoterol 200/5 60 PUFF INH SCH ×2 (08:17→20:53)
[2021-08-11] MEDS: busPIRone HCl 5 MG TAB PO SCH (20:53)
[2021-08-11] MEDS: Atorvastatin Calcium 40 MG TAB PO SCH (20:54)
[2021-08-11] MEDS: Melatonin 3 MG TAB PO PRN (20:57)
[2021-08-11] MEDS: traMADol HCl 50 MG TAB PO PRN (20:57)
[2021-08-12] MEDS: Levothyroxine Sodium 75 MCG TAB PO SCH (06:01)
[2021-08-12] MEDS: traMADol HCl 50 MG TAB PO PRN (06:59)
[2021-08-12] MEDS: Mometasone/Formoterol 200/5 60 PUFF INH SCH ×2 (08:48→21:40)
[2021-08-12] MEDS: Ezetimibe 10 MG TAB PO SCH (08:49)
[2021-08-12] MEDS: guaiFENesin ER 600 MG TAB PO SCH (08:49)
[2021-08-12] MEDS: Digoxin 0.125 MG TAB PO SCH (08:49)
[2021-08-12] MEDS: Carvedilol 3.125 MG TAB PO SCH ×2 (08:50→17:32)
[2021-08-12] MEDS: FLUoxetine HCl 20 MG CAP PO SCH (08:50)
[2021-08-12] MEDS: Potassium Chloride 20 MEQ TAB PO SCH ×2 (08:51→21:39)
[2021-08-12] MEDS: Loratadine 10 MG TAB PO SCH (08:51)
[2021-08-12] MEDS: predniSONE 20 MG TAB PO SCH (08:51)
[2021-08-12] MEDS: Furosemide 40 MG TAB PO SCH ×2 (08:51→13:12)
[2021-08-12] MEDS: Multivitamin W/ Minerals 1 TAB PO SCH (08:52)
[2021-08-12] MEDS: Cholecalciferol (Vitamin D3) 5,000 UNITS CAPSULE PO SCH (08:52)
[2021-08-12] MEDS: Aspirin 81 mg Enteric Coated Tablet PO SCH (08:52)
[2021-08-12] MEDS: Stress 600 With Zinc 1 TAB PO SCH (08:52)
[2021-08-12] MEDS: Atorvastatin Calcium 40 MG TAB PO SCH (21:39)
[2021-08-12] MEDS: busPIRone HCl 5 MG TAB PO SCH (21:39)
[2021-08-13] MEDS: Levothyroxine Sodium 75 MCG TAB PO SCH (05:00)
[2021-08-13] MEDS: Mometasone/Formoterol 200/5 60 PUFF INH SCH ×2 (08:13→20:05)
[2021-08-13] MEDS: FLUoxetine HCl 20 MG CAP PO SCH (08:14)
[2021-08-13] MEDS: Ezetimibe 10 MG TAB PO SCH (08:14)
[2021-08-13] MEDS: Carvedilol 3.125 MG TAB PO SCH ×2 (08:14→17:57)
[2021-08-13] MEDS: predniSONE 20 MG TAB PO SCH (08:14)
[2021-08-13] MEDS: Aspirin 81 mg Enteric Coated Tablet PO SCH (08:14)
[2021-08-13] MEDS: Potassium Chloride 20 MEQ TAB PO SCH ×2 (08:14→20:05)
[2021-08-13] MEDS: Digoxin 0.125 MG TAB PO SCH (08:15)
[2021-08-13] MEDS: Loratadine 10 MG TAB PO SCH (08:15)
[2021-08-13] MEDS: Stress 600 With Zinc 1 TAB PO SCH (08:15)
[2021-08-13] MEDS: Cholecalciferol (Vitamin D3) 5,000 UNITS CAPSULE PO SCH (08:15)
[2021-08-13] MEDS: Furosemide 40 MG TAB PO SCH ×2 (08:15→13:07)
[2021-08-13] MEDS: Multivitamin W/ Minerals 1 TAB PO SCH (08:15)
[2021-08-13] MEDS: guaiFENesin ER 600 MG TAB PO SCH (08:15)
[2021-08-13] MEDS: busPIRone HCl 5 MG TAB PO SCH (20:05)
[2021-08-13] MEDS: Atorvastatin Calcium 40 MG TAB PO SCH (20:05)
[2021-08-13] MEDS: Melatonin 3 MG TAB PO PRN (20:10)
[2021-08-13] MEDS: traMADol HCl 50 MG TAB PO PRN (21:15)
[2021-08-14] MEDS: Levothyroxine Sodium 75 MCG TAB PO SCH (05:19)
[2021-08-14] MEDS: predniSONE 20 MG TAB PO SCH (07:52)
[2021-08-14] MEDS: Mometasone/Formoterol 200/5 60 PUFF INH SCH ×2 (07:52→20:29)
[2021-08-14] MEDS: Cholecalciferol (Vitamin D3) 5,000 UNITS CAPSULE PO SCH (07:53)
[2021-08-14] MEDS: Aspirin 81 mg Enteric Coated Tablet PO SCH (07:53)
[2021-08-14] MEDS: Carvedilol 3.125 MG TAB PO SCH ×2 (07:53→16:46)
[2021-08-14] MEDS: Furosemide 40 MG TAB PO SCH ×2 (07:53→12:54)
[2021-08-14] MEDS: guaiFENesin ER 600 MG TAB PO SCH (07:53)
[2021-08-14] MEDS: Digoxin 0.125 MG TAB PO SCH (07:53)
[2021-08-14] MEDS: Potassium Chloride 20 MEQ TAB PO SCH ×2 (07:53→20:28)
[2021-08-14] MEDS: Ezetimibe 10 MG TAB PO SCH (07:53)
[2021-08-14] MEDS: FLUoxetine HCl 20 MG CAP PO SCH (07:53)
[2021-08-14] MEDS: Multivitamin W/ Minerals 1 TAB PO SCH (07:53)
[2021-08-14] MEDS: Loratadine 10 MG TAB PO SCH (07:53)
[2021-08-14] MEDS: Stress 600 With Zinc 1 TAB PO SCH (07:53)
[2021-08-14] MEDS: Melatonin 3 MG TAB PO PRN (20:25)
[2021-08-14] MEDS: traMADol HCl 50 MG TAB PO PRN (20:25)
[2021-08-14] MEDS: busPIRone HCl 5 MG TAB PO SCH (20:27)
[2021-08-14] MEDS: Atorvastatin Calcium 40 MG TAB PO SCH (20:28)
[2021-08-14] MEDS: Lantiseptic Ointment 130 GM JAR TOP PRN (20:30)
[2021-08-15] MEDS: Levothyroxine Sodium 75 MCG TAB PO SCH (05:51)
[2021-08-15] MEDS: Mometasone/Formoterol 200/5 60 PUFF INH SCH ×2 (09:07→20:03)
[2021-08-15] MEDS: traMADol HCl 50 MG TAB PO PRN ×2 (09:08→16:14)
[2021-08-15] MEDS: Digoxin 0.125 MG TAB PO SCH (09:09)
[2021-08-15] MEDS: guaiFENesin ER 600 MG TAB PO SCH (09:09)
[2021-08-15] MEDS: Loratadine 10 MG TAB PO SCH (09:09)
[2021-08-15] MEDS: Stress 600 With Zinc 1 TAB PO SCH (09:09)
[2021-08-15] MEDS: Carvedilol 3.125 MG TAB PO SCH ×2 (09:09→16:15)
[2021-08-15] MEDS: Multivitamin W/ Minerals 1 TAB PO SCH (09:09)
[2021-08-15] MEDS: Potassium Chloride 20 MEQ TAB PO SCH ×2 (09:09→20:06)
[2021-08-15] MEDS: Furosemide 40 MG TAB PO SCH ×2 (09:09→13:45)
[2021-08-15] MEDS: FLUoxetine HCl 20 MG CAP PO SCH (09:09)
[2021-08-15] MEDS: Ezetimibe 10 MG TAB PO SCH (09:10)
[2021-08-15] MEDS: Cholecalciferol (Vitamin D3) 5,000 UNITS CAPSULE PO SCH (09:10)
[2021-08-15] MEDS: Aspirin 81 mg Enteric Coated Tablet PO SCH (09:10)
[2021-08-15] MEDS: predniSONE 20 MG TAB PO SCH (09:10)
[2021-08-15] MEDS: busPIRone HCl 5 MG TAB PO SCH (20:04)
[2021-08-15] MEDS: Atorvastatin Calcium 40 MG TAB PO SCH (20:04)
[2021-08-15 20:18] LABS: SARS-CoV-2 PCR by NAA Not Detected (NotDetected)
[2021-08-15] MEDS: Melatonin 3 MG TAB PO PRN (20:19)
[2021-08-16 05:23] LABS: #Basophils 0.1 thou/uL (0.0-0.2); #Lymphocytes 1.8 thou/uL (1.20-3.40); #Monocytes 1.1 thou/uL (0.11-0.59); #Neutrophils 6.5 thou/uL (1.40-6.50); %Basophils 1.3 % (0.0-1.0); %Eosinophils 0.3 % (0.0-10.0); %Lymphocytes 19.2 % (21.0-51.0); %Monocytes 11.2 % (0.0-10.0); %Neutrophils 67.9 % (42.0-75.0); Hemoglobin 10.5 g/dL (12.0-16.0); Mean Corpuscular HGB CONC 30.8 g/dL (32.0-36.0); Mean Corpuscular Hemoglobin 28.1 pg (27.0-31.0); Mean Corpuscular Volume 91.3 fL (78.0-98.0); Mean Platelet Volume 5.6 fL (7.4-10.4); Platelet Count 233 thou/uL (130-400); Red Blood Cell (RBC) Count 3.72 mill/uL (4.20-5.40); White Blood Cell (WBC) Count 9.5 thou/uL (4.8-10.8)
[2021-08-16] MEDS: Levothyroxine Sodium 75 MCG TAB PO SCH (05:32)
[2021-08-16 05:37] LABS: Anion Gap 12 mmol/L (10-20); BUN (Urea Nitrogen) 26 mg/dL (9.8-20.1); Calc. Creatinine Clearance 54 mL/min (70-130); Glucose 100 mg/dL (83-110)
[2021-08-16 05:45] LABS: Chloride 89 mmol/L (98-107); Potassium 3.8 mmol/L (3.5-5.1); Sodium 142 mmol/L (136-145)
[2021-08-16 05:49] LABS: Carbon Dioxide 42 mmol/L (23-31)
[2021-08-16] MEDS: Mometasone/Formoterol 200/5 60 PUFF INH SCH ×2 (08:51→20:56)
[2021-08-16] MEDS: traMADol HCl 50 MG TAB PO PRN ×2 (08:52→18:26)
[2021-08-16] MEDS: Digoxin 0.125 MG TAB PO SCH (08:53)
[2021-08-16] MEDS: FLUoxetine HCl 20 MG CAP PO SCH (08:53)
[2021-08-16] MEDS: Stress 600 With Zinc 1 TAB PO SCH (08:53)
[2021-08-16] MEDS: Furosemide 40 MG TAB PO SCH ×2 (08:53→14:24)
[2021-08-16] MEDS: Aspirin 81 mg Enteric Coated Tablet PO SCH (08:53)
[2021-08-16] MEDS: Multivitamin W/ Minerals 1 TAB PO SCH (08:53)
[2021-08-16] MEDS: Carvedilol 3.125 MG TAB PO SCH ×2 (08:53→17:16)
[2021-08-16] MEDS: Ezetimibe 10 MG TAB PO SCH (08:53)
[2021-08-16] MEDS: Loratadine 10 MG TAB PO SCH (08:53)
[2021-08-16] MEDS: guaiFENesin ER 600 MG TAB PO SCH (08:53)
[2021-08-16] MEDS: Cholecalciferol (Vitamin D3) 5,000 UNITS CAPSULE PO SCH (08:53)
[2021-08-16] MEDS: Potassium Chloride 20 MEQ TAB PO SCH ×2 (08:54→20:56)
[2021-08-16] MEDS: predniSONE 20 MG TAB PO SCH (08:54)
[2021-08-16] MEDS: Atorvastatin Calcium 40 MG TAB PO SCH (20:56)
[2021-08-16] MEDS: busPIRone HCl 5 MG TAB PO SCH (20:56)
[2021-08-16] MEDS: Melatonin 3 MG TAB PO PRN (20:57)
[2021-08-17] MEDS: Levothyroxine Sodium 75 MCG TAB PO SCH (06:01)
[2021-08-17] MEDS: traMADol HCl 50 MG TAB PO PRN ×2 (07:10→20:07)
[2021-08-17] MEDS: Digoxin 0.125 MG TAB PO SCH (08:20)
[2021-08-17] MEDS: Multivitamin W/ Minerals 1 TAB PO SCH (08:20)
[2021-08-17] MEDS: FLUoxetine HCl 20 MG CAP PO SCH (08:20)
[2021-08-17] MEDS: Ezetimibe 10 MG TAB PO SCH (08:20)
[2021-08-17] MEDS: Stress 600 With Zinc 1 TAB PO SCH (08:20)
[2021-08-17] MEDS: guaiFENesin ER 600 MG TAB PO SCH (08:20)
[2021-08-17] MEDS: predniSONE 20 MG TAB PO SCH (08:20)
[2021-08-17] MEDS: Cholecalciferol (Vitamin D3) 5,000 UNITS CAPSULE PO SCH (08:21)
[2021-08-17] MEDS: Potassium Chloride 20 MEQ TAB PO SCH ×2 (08:21→20:08)
[2021-08-17] MEDS: Aspirin 81 mg Enteric Coated Tablet PO SCH (08:21)
[2021-08-17] MEDS: Furosemide 40 MG TAB PO SCH ×2 (08:21→12:54)
[2021-08-17] MEDS: Loratadine 10 MG TAB PO SCH (08:21)
[2021-08-17] MEDS: Carvedilol 3.125 MG TAB PO SCH ×2 (08:22→16:46)
[2021-08-17] MEDS: Mometasone/Formoterol 200/5 60 PUFF INH SCH ×2 (08:25→20:17)
[2021-08-17] MEDS: Calcium Carbonate 500 MG ChewTAB PO PRN (10:19)
[2021-08-17] MEDS: Acetaminophen 325 MG TAB PO PRN ×2 (12:57→22:47)
[2021-08-17] MEDS: busPIRone HCl 5 MG TAB PO PRN (18:03)
[2021-08-17] MEDS: Atorvastatin Calcium 40 MG TAB PO SCH (20:05)
[2021-08-17] MEDS: busPIRone HCl 5 MG TAB PO SCH (20:05)
[2021-08-17] MEDS: Melatonin 3 MG TAB PO PRN (22:47)
[2021-08-18] MEDS: Levothyroxine Sodium 75 MCG TAB PO SCH (05:17)
[2021-08-18] MEDS: traMADol HCl 50 MG TAB PO PRN (05:17)
[2021-08-18] MEDS: Acetaminophen 325 MG TAB PO PRN (07:21)
[2021-08-18] MEDS: Potassium Chloride 20 MEQ TAB PO SCH ×2 (07:57→21:15)
[2021-08-18] MEDS: Cholecalciferol (Vitamin D3) 5,000 UNITS CAPSULE PO SCH (07:57)
[2021-08-18] MEDS: Aspirin 81 mg Enteric Coated Tablet PO SCH (07:57)
[2021-08-18] MEDS: Ezetimibe 10 MG TAB PO SCH (07:57)
[2021-08-18] MEDS: guaiFENesin ER 600 MG TAB PO SCH (07:57)
[2021-08-18] MEDS: Stress 600 With Zinc 1 TAB PO SCH (07:58)
[2021-08-18] MEDS: Loratadine 10 MG TAB PO SCH (07:58)
[2021-08-18] MEDS: Multivitamin W/ Minerals 1 TAB PO SCH (07:58)
[2021-08-18] MEDS: Digoxin 0.125 MG TAB PO SCH (07:59)
[2021-08-18] MEDS: FLUoxetine HCl 20 MG CAP PO SCH (07:59)
[2021-08-18] MEDS: Furosemide 40 MG TAB PO SCH ×2 (07:59→17:00)
[2021-08-18] MEDS: Carvedilol 3.125 MG TAB PO SCH ×2 (07:59→16:56)
[2021-08-18] MEDS: predniSONE 20 MG TAB PO SCH (07:59)
[2021-08-18] MEDS: Mometasone/Formoterol 200/5 60 PUFF INH SCH ×2 (08:01→21:16)
[2021-08-18] MEDS ORDERED: Cefdinir 300 MG CAP PO SCH (10:30)
[2021-08-18] MEDS ORDERED: predniSONE 20 MG TAB PO SCH ×2 (10:30)
[2021-08-18] MEDS ORDERED: Enoxaparin Sodium 40 MG/0.4 ML SYRINGE SC SCH (10:30)
[2021-08-18 10:55] LABS: Anion Gap 13 mmol/L (10-20); BUN (Urea Nitrogen) 31 mg/dL (9.8-20.1); Calc. Creatinine Clearance 52 mL/min (70-130); Calcium 10.2 mg/dL (7.8-10.44); Glucose 112 mg/dL (83-110)
[2021-08-18 11:03] LABS: Carbon Dioxide 38 mmol/L (23-31); Chloride 87 mmol/L (98-107); Potassium 4.2 mmol/L (3.5-5.1); Sodium 137 mmol/L (136-145)
[2021-08-18 11:25] LABS: Anisocytosis SLIGHT = 6-15 cells (100X) (0-5/hpf); Band 4 % (5-11); Hemoglobin 11.7 g/dL (12.0-16.0); Lymphocytes 3 % (21-51); MDiff Complete? YES; Mean Corpuscular HGB CONC 31.4 g/dL (32.0-36.0); Mean Corpuscular Hemoglobin 28.2 pg (27.0-31.0); Mean Corpuscular Volume 89.7 fL (78.0-98.0); Mean Platelet Volume 5.7 fL (7.4-10.4); Monocytes 9 % (0-10); Neutrophil 78 % (42-75); Platelet Count 183 thou/uL (130-400); Platelet Morphology Comment Appears Adequate; Reactive Lymphocytes 6 % (0-10); Red Blood Cell (RBC) Count 4.17 mill/uL (4.20-5.40); White Blood Cell (WBC) Count 9.5 thou/uL (4.8-10.8)
[2021-08-18] MEDS: busPIRone HCl 5 MG TAB PO SCH (21:15)
[2021-08-18] MEDS: Cefdinir 300 MG CAP PO SCH (21:15)
[2021-08-18] MEDS: Atorvastatin Calcium 40 MG TAB PO SCH (21:15)
[2021-08-18] MEDS: Melatonin 3 MG TAB PO PRN (21:16)
[2021-08-19] MEDS: Levothyroxine Sodium 75 MCG TAB PO SCH (05:41)
[2021-08-19] MEDS: predniSONE 20 MG TAB PO SCH (08:35)
[2021-08-19] MEDS: Carvedilol 3.125 MG TAB PO SCH ×2 (08:35→17:14)
[2021-08-19] MEDS: Aspirin 81 mg Enteric Coated Tablet PO SCH (08:36)
[2021-08-19] MEDS: Cholecalciferol (Vitamin D3) 5,000 UNITS CAPSULE PO SCH (08:36)
[2021-08-19] MEDS: Cefdinir 300 MG CAP PO SCH ×2 (08:36→20:41)
[2021-08-19] MEDS: Digoxin 0.125 MG TAB PO SCH (08:37)
[2021-08-19] MEDS: Enoxaparin Sodium 40 MG/0.4 ML SYRINGE SC SCH (08:38)
[2021-08-19] MEDS: Ezetimibe 10 MG TAB PO SCH (08:38)
[2021-08-19] MEDS: FLUoxetine HCl 20 MG CAP PO SCH (08:39)
[2021-08-19] MEDS: guaiFENesin ER 600 MG TAB PO SCH (08:39)
[2021-08-19] MEDS: Furosemide 40 MG TAB PO SCH ×2 (08:39→13:22)
[2021-08-19] MEDS: Loratadine 10 MG TAB PO SCH (08:39)
[2021-08-19] MEDS: Mometasone/Formoterol 200/5 60 PUFF INH SCH ×2 (08:40→20:42)
[2021-08-19] MEDS: Multivitamin W/ Minerals 1 TAB PO SCH (08:40)
[2021-08-19] MEDS: Stress 600 With Zinc 1 TAB PO SCH (08:41)
[2021-08-19] MEDS: Potassium Chloride 20 MEQ TAB PO SCH ×2 (08:41→20:41)
[2021-08-19] MEDS: busPIRone HCl 5 MG TAB PO PRN (11:39)
[2021-08-19] MEDS: Atorvastatin Calcium 40 MG TAB PO SCH (20:41)
[2021-08-19] MEDS: busPIRone HCl 5 MG TAB PO SCH (20:41)
[2021-08-19] MEDS: Melatonin 3 MG TAB PO PRN (20:45)
[2021-08-19] MEDS: Guaifenesin DM 100-10/5 ML UDCUP PO PRN (22:26)
[2021-08-20] MEDS: Levothyroxine Sodium 75 MCG TAB PO SCH (05:29)
[2021-08-20] MEDS ORDERED: predniSONE 20 MG TAB ONE (07:35)
[2021-08-20] MEDS: Carvedilol 3.125 MG TAB PO SCH ×2 (08:14→16:48)
[2021-08-20] MEDS: predniSONE 20 MG TAB PO SCH (08:14)
[2021-08-20] MEDS: Aspirin 81 mg Enteric Coated Tablet PO SCH (08:14)
[2021-08-20] MEDS: Cefdinir 300 MG CAP PO SCH ×2 (08:15→20:35)
[2021-08-20] MEDS: Digoxin 0.125 MG TAB PO SCH (08:15)
[2021-08-20] MEDS: Cholecalciferol (Vitamin D3) 5,000 UNITS CAPSULE PO SCH (08:15)
[2021-08-20] MEDS: Ezetimibe 10 MG TAB PO SCH (08:16)
[2021-08-20] MEDS: FLUoxetine HCl 20 MG CAP PO SCH (08:16)
[2021-08-20] MEDS: Furosemide 40 MG TAB PO SCH ×2 (08:16→13:04)
[2021-08-20] MEDS: Enoxaparin Sodium 40 MG/0.4 ML SYRINGE SC SCH (08:16)
[2021-08-20] MEDS: guaiFENesin ER 600 MG TAB PO SCH (08:16)
[2021-08-20] MEDS: Loratadine 10 MG TAB PO SCH (08:16)
[2021-08-20] MEDS: Stress 600 With Zinc 1 TAB PO SCH (08:17)
[2021-08-20] MEDS: Multivitamin W/ Minerals 1 TAB PO SCH (08:17)
[2021-08-20] MEDS: Mometasone/Formoterol 200/5 60 PUFF INH SCH ×2 (08:17→20:36)
[2021-08-20] MEDS: Potassium Chloride 20 MEQ TAB PO SCH ×2 (08:17→20:35)
[2021-08-20] MEDS: busPIRone HCl 5 MG TAB PO PRN (11:58)
[2021-08-20] MEDS: Melatonin 3 MG TAB PO PRN (20:35)
[2021-08-20] MEDS: Atorvastatin Calcium 40 MG TAB PO SCH (20:35)
[2021-08-20] MEDS: busPIRone HCl 5 MG TAB PO SCH (20:35)
[2021-08-20] MEDS: Guaifenesin DM 100-10/5 ML UDCUP PO PRN (23:16)
[2021-08-21] MEDS: Levothyroxine Sodium 75 MCG TAB PO SCH (05:37)
[2021-08-21] MEDS: Mometasone/Formoterol 200/5 60 PUFF INH SCH ×2 (09:38→20:23)
[2021-08-21] MEDS: Stress 600 With Zinc 1 TAB PO SCH (09:39)
[2021-08-21] MEDS: Aspirin 81 mg Enteric Coated Tablet PO SCH (09:39)
[2021-08-21] MEDS: Carvedilol 3.125 MG TAB PO SCH ×2 (09:39→17:45)
[2021-08-21] MEDS: Potassium Chloride 20 MEQ TAB PO SCH ×2 (09:39→20:23)
[2021-08-21] MEDS: Enoxaparin Sodium 40 MG/0.4 ML SYRINGE SC SCH (09:40)
[2021-08-21] MEDS: Furosemide 40 MG TAB PO SCH ×2 (09:40→14:21)
[2021-08-21] MEDS: Cholecalciferol (Vitamin D3) 5,000 UNITS CAPSULE PO SCH (09:40)
[2021-08-21] MEDS: Multivitamin W/ Minerals 1 TAB PO SCH (09:40)
[2021-08-21] MEDS: Cefdinir 300 MG CAP PO SCH ×2 (09:40→20:22)
[2021-08-21] MEDS: guaiFENesin ER 600 MG TAB PO SCH (09:40)
[2021-08-21] MEDS: Ezetimibe 10 MG TAB PO SCH (09:40)
[2021-08-21] MEDS: Loratadine 10 MG TAB PO SCH (09:41)
[2021-08-21] MEDS: Digoxin 0.125 MG TAB PO SCH (09:41)
[2021-08-21] MEDS: predniSONE 20 MG TAB PO SCH ×2 (09:41→10:52)
[2021-08-21] MEDS: FLUoxetine HCl 20 MG CAP PO SCH (09:41)
[2021-08-21 11:49] VITALS: BMI 23.0
[2021-08-21] MEDS: busPIRone HCl 5 MG TAB PO SCH (20:22)
[2021-08-21] MEDS: Atorvastatin Calcium 40 MG TAB PO SCH (20:23)
[2021-08-21] MEDS: Melatonin 3 MG TAB PO PRN (20:26)
[2021-08-22] MEDS: Levothyroxine Sodium 75 MCG TAB PO SCH (05:55)
[2021-08-22 07:58] VITALS: BP 136/82; TEMP 98.5
[2021-08-22] MEDS: Mometasone/Formoterol 200/5 60 PUFF INH SCH (08:04)
[2021-08-22] MEDS: Enoxaparin Sodium 40 MG/0.4 ML SYRINGE SC SCH (08:07)
[2021-08-22] MEDS: Cefdinir 300 MG CAP PO SCH (08:08)
[2021-08-22] MEDS: Carvedilol 3.125 MG TAB PO SCH (08:08)
[2021-08-22] MEDS: predniSONE 20 MG TAB PO SCH (08:08)
[2021-08-22] MEDS: Aspirin 81 mg Enteric Coated Tablet PO SCH (08:08)
[2021-08-22] MEDS: Potassium Chloride 20 MEQ TAB PO SCH (08:09)
[2021-08-22] MEDS: Multivitamin W/ Minerals 1 TAB PO SCH (08:09)
[2021-08-22] MEDS: Loratadine 10 MG TAB PO SCH (08:09)
[2021-08-22] MEDS: FLUoxetine HCl 20 MG CAP PO SCH (08:09)
[2021-08-22] MEDS: Cholecalciferol (Vitamin D3) 5,000 UNITS CAPSULE PO SCH (08:09)
[2021-08-22] MEDS: guaiFENesin ER 600 MG TAB PO SCH (08:09)
[2021-08-22] MEDS: Stress 600 With Zinc 1 TAB PO SCH (08:09)
[2021-08-22] MEDS: Furosemide 40 MG TAB PO SCH ×2 (08:09→12:46)
[2021-08-22] MEDS: busPIRone HCl 5 MG TAB PO PRN (08:09)
[2021-08-22] MEDS: Ezetimibe 10 MG TAB PO SCH (08:09)
[2021-08-22] MEDS: Digoxin 0.125 MG TAB PO SCH (08:10)
[2021-08-22 14:34] LABS: SARS-CoV-2 PCR by NAA Not Detected (NotDetected)
== END 2021-08-22 12:50 | disposition home or self-care (01) | DRG 948 ==
LOC: UNDOADMIN 20:25 → MADMS 20:25
PROVIDERS: ADMIT Family Medicine; ATTEND Family Medicine
DX: R53.1 Weakness (principal); I42.9 Cardiomyopathy, unspecified; J96.11 Chronic respiratory failure with hypoxia; I13.0 Hypertensive heart and chronic kidney disease with heart failure and stage 1 through stage 4 chronic kidney disease, or unspecified chronic kidney disease; I50.32 Chronic diastolic (congestive) heart failure; R53.81 Other malaise; J44.9 Chronic obstructive pulmonary disease, unspecified; M47.816 Spondylosis without myelopathy or radiculopathy, lumbar region; E78.5 Hyperlipidemia, unspecified; F32.A Depression, unspecified; Z66 Do not resuscitate; E03.9 Hypothyroidism, unspecified; N18.9 Chronic kidney disease, unspecified; G89.29 Other chronic pain; Z20.822 Contact with and (suspected) exposure to COVID-19; F41.0 Panic disorder [episodic paroxysmal anxiety]; M54.50 Low back pain, unspecified; G47.00 Insomnia, unspecified; I87.2 Venous insufficiency (chronic) (peripheral); D63.1 Anemia in chronic kidney disease; Z98.51 Tubal ligation status; Z95.810 Presence of automatic (implantable) cardiac defibrillator; Z90.49 Acquired absence of other specified parts of digestive tract; Z90.89 Acquired absence of other organs; Z79.899 Other long term (current) drug therapy; Z79.891 Long term (current) use of opiate analgesic; Z79.82 Long term (current) use of aspirin; Z79.890 Hormone replacement therapy; Z79.51 Long term (current) use of inhaled steroids; Z88.5 Allergy status to narcotic agent; Z88.6 Allergy status to analgesic agent; Z88.1 Allergy status to other antibiotic agents; Z88.2 Allergy status to sulfonamides; Z88.0 Allergy status to penicillin; Z88.8 Allergy status to other drugs, medicaments and biological substances; Z91.018 Allergy to other foods
CPT/HCPCS: 36415; 71045; 80048; 80053; 85025; 94640; 94664; J1650; J7512; J7620; U0003; U0005